=== PATIENT | female | born 1950 | race Caucasian/White ===

== ENCOUNTER 2023-05-30 14:51 | Oncology outpatient (recurring) (ONCR) | payer MEDICARE, MEDICAID, SELFPAY | END 2023-06-20 23:59 | disposition home or self-care (01) | PROVIDERS: PCP Nurse Practitioner Family; Visit Provider Internal Medicine Medical Oncology | DX: C20 Malignant neoplasm of rectum (principal); Z79.899 Other long term (current) drug therapy | CPT/HCPCS: 99205 ==

== ENCOUNTER → 2023-08-13 14:44 | Day surgery (SDC) | payer MEDICARE, MEDICAID, SELFPAY ==
--- NOTE | 2023-08-13 14:47 | XR_ITS ---
WS: [id number] Exam: XR chest 1V portable [id number] Date/Time of Exam: 08/13/2023 2:47 PM Reason For Exam: Post PICC insertion The lungs are clear and fully expanded. Normal cardiomediastinal silhouette. No pleural effusions. A left-sided PICC line ends in the lower one third of the SVC. Bony structures are intact. Mild scolios is at the thoracolumbar junction with RIGHT convexity. IMPRESSION: 1. No acute cardiopulmonary finding. 2. Left-sided PICC line ending in the lower one third of the SVC.
[2023-08-13 14:50] VITALS: BP 160/96; PULSE 92; RESP 18; TEMP 36.1; O2SAT 100
--- NOTE | 2023-08-13 15:30 | PC.NURSE ---
Double lumen PICC placed to left basilic vein. Pt referred to vascular access nurse for PICC line to start chemotherapy. Pt states she is right handed and would like line placed in left arm. Risks and benefits discussed and informed consent obtained from patient. Left arm assessed with left brachial vein measuring 3.4 mm, straight, and apparent best choice for placement. Using sterile technique and MST, left brachial vein accessed but patient complaining of sharp pain radiating down arm to thumb. States pain is significant. Needle removed. Second attempt made to left basilic vein. Using sterile technique and MST, left basilic vein accessed x 1 stick. Mid-arm circumference measured 10 cm from left AC 25 cm. Trimmed cath 43 cm with 1 cm external length noted. CXR shows tip in distal SVC, in good position for use per radiologist. Line secured with stat-lock. Insertion site covered with Biopatch and TSM. [facility] at 0730 for lab draw, followed by initiation of chemotherapy. Pt states her left arm still has residual sharp pain around the elbow area and down arm. Educated patient to take prescribed pain medication and her anxiety medication when she gets home. CTC nurse, Adela, notified of pain in arm and to notify vascular access nurse tomorrow if pain persists.
== END ==
PROVIDERS: PCP Nurse Practitioner Family; Visit Provider Internal Medicine Medical Oncology
DX: C20 Malignant neoplasm of rectum (principal)
CPT/HCPCS: 36573; 71045

== ENCOUNTER 2023-08-16 14:30 | Oncology outpatient (recurring) (ONCR) | payer MEDICARE, MEDICAID, SELFPAY ==
--- NOTE | 2023-08-13 14:08 | N.ONRAD NP_ITS ---
Radiation Oncology New Patient Visit Patient: Madiha Echeverira MR#: [id number] : 1950> Age: 72> Sex: Female> Dictated by: Dr. Kanika Mensah Date of Service: 08/13/2023 Referring Physician(s) : Dr. Mk Leary Diagnosis: C20 - malignant neoplasm of rectum, Diagnosed 05/07/2023 (active). Radiotherapy to date: Summary > No prior radiation therapy. Chief Complaint / History of Present Illness: Patient is a 72-year-old lady who began to have rectal bleeding in the spring 2022. She was initially told this was most likely from hemorrhoids. She was given different options for creams for hemorrhoids. She began to also have increased frequency of stools getting up to 30 a day at 1 point. Said that point she was given Imodium to slow her stools down. By March her workup had begun and she was found on a CT scan to have thickening of the rectal wall and perirectal lymph nodes. She underwent colonoscopy in April 2023 and was found to have multiple polyps all of which were removed. She also had a mass in the rectum which was circumferential that extended 6 cm from the peritoneal reflection downward. Biopsy showed this was a grade 2 adenocarcinoma of the rectum. She has in the interim lost nearly 35 pounds. She continues to have bleeding and throbbing pain. She passes liquid or mucus. She on occasion will have a strand of stool. She is seen today in consultation to discuss treatment plan. She has had an MRI which confirmed the extension of the rectal lesion as well as the presence of adenopathy. Current Medications: acetaminophen 500 mg PO Q6H PRN amlodipine 5 mg PO DAILY cholecalciferol (vitamin D3) 25 mcg PO DAILY cyanocobalamin (vitamin B-12) 1,000 mcg PO DAILY levothyroxine 50 mcg PO DAILY Allergies: Medical History: Fibromyalgia Hypothyroidism Hypertension. Surgical History: H/O colonoscopy with polypectomy (05/07/23) H/O section Family History: Her father had lung cancer Father Lung cancer Mother Heart failure Social History: Smoking and tobacco/nicotine status: former use of tobacco/nicotine Quit status (tobacco/nicotine): has quit using Year quit tobacco: 2015 Former quit date comment: She previously smoked 1/2 pack of cigarettes daily. Alcohol intake: never Current Complaints / Review of Systems: . Frequent stools, blood in her stools Vital Signs: Performed on 08/13/2023 1:01 PM BMI - 11.247 kg/m2 (low), Height - 92 in, Weight - 135.4 lbs, Temperature - 97 f, Pulse - 95 /min, Respiration - 18 /min, O2 Sat - 99 %, Pain - 8, Fatigue - 0 and BP - 177/ 79 mm(hg)(high/). Physical Exam: General: Patient is sitting comfortably in her chair. She is accompanied today by her and her daughter. HEENT: Normocephalic atraumatic. Pupils are equal, sclera clear, extraocular muscles intact. Oral cavity was clear without lesions or ulcerations. Neck is supple without palpable cervical or supraclavicular adenopathy Cardiovascular: Regular rate and rhythm Pulmonary: Lungs were clear to auscultation. Respiratory rate is regular nonlabored Abdomen: Soft and nontender without hepatomegaly. No palpable areas of tenderness were noted. Extremities: Without clubbing cyanosis or edema Neurological: Alert and orient x 3. Gait and speech within normal limits Psych: Affect normal for current situation. Patient seems to be somewhat forgetful as she does not recall some of the information that she has been told. Skin: Warm and dry. Her skin is somewhat pale Performance Status: KPS 90 Pathology: Grade 2 adenocarcinoma Imaging: See HPI Impression: Stage III adenocarcinoma of the rectum Plan: I reviewed the sequence of events. We discussed her bowel history. We reviewed the imaging she had done and the results. We discussed the extent of the cancer and its length. The plan at this point is to proceed with neoadjuvant chemotherapy followed by combined modality therapy. We talked about the radiation being 5 weeks, daily along with chemotherapy. She understands she will start her chemotherapy first and once the first part of her chemotherapy is completed she will be sent back to start the combined modality therapy. At this point she was seen by the medical oncologist today and she will have a port placed and start her treatments as soon as possible. I reviewed with her the symptoms to watch for as I am concerned that she may become obstructed. She and her family verbalized understanding of this. Signed by: 08/13/2023 2:06:25 PM <<[id number] on File>> Time spent with patient:60 CPT Code: CPT Code:
[2023-08-14 07:58] LABS: Basophils # 0.1 10^3/uL (0.0-0.1); Basophils % 0.7 %; Eosinophils # 0.1 10^3/uL (0.0-0.8); Eosinophils % 1.7 %; Hematocrit 29.8 % (36-47); Lymphocytes # 1.7 10^3/uL (0.8-4.8); Lymphocytes % 22.7 %; Mean Corpuscular HGB Conc 28.2 g/dL (30-55); Mean Corpuscular Hemoglobin 20.1 pg (27-33); Mean Corpuscular Volume 71.5 fl (85-98); Mean Platelet Volume 9.8 fL (7.4-10.4); Monocytes # 0.6 10^3/uL (0.2-0.9); Monocytes % 8.7 %; Neutrophils # 4.79 10^3/uL (1.8-7.7); Neutrophils % 65.9 %; Nucleated Red Blood Cells % 0 %; Platelet Count 455 10^3/cmm (157-399); Red Blood Count 4.17 10^6/uL (3.85-5.65); Red Cell Distribution Width 18.4 % (12.1-15.1); White Blood Count 7.26 10^3/uL (3.29-11.43)
[2023-08-14 08:15] LABS: Alanine Aminotransferase 7 U/L (0-33); Albumin Level 4.2 g/dL (3.5-5.2); Alkaline Phosphatase 115 U/L (35-105); Blood Urea Nitrogen 16 mg/dL (8-23); Calcium 9.8 mg/dL (8.5-10.5); Carbon Dioxide 22 mmol/L (22-29); Chloride 103 mmol/L (98-107); Creatinine Clr Calc Pharmacy 54.7434; Globulin 3.8 g/dL (1.3-4.6); Glucose 112 mg/dL (65-115); Osmolality Calculated 286 mOsm/kg (285-295); Sodium 137 mmol/L (136-145); Total Bilirubin 0.5 mg/dL (0.15-1.2)
[2023-08-14 08:19] LABS: Anion Gap 16.7 (5-19); Potassium 4.7 mmol/L (3.5-5.1)
[2023-08-14 08:25] LABS: Aspartate Amino Transferase 5 U/L (0-32)
[2023-08-14 09:18] LABS: Ferritin 11 ng/mL (15-150); Iron 23 ug/dL (37-145); Percent Saturation 5.6 % (20-50); Total Iron Binding Capacity 410 mcg/dl; Unsaturated Iron Binding 387 ug/dL (112-347)
[2023-08-14] MEDS: dextrose 5% 250 ML 75 ML IV (09:18)
[2023-08-14] MEDS: palonosetron 0.25 mg/5 mL SDV IVP (09:18)
[2023-08-14] MEDS: oxaliplatin 100 MG, oxaliplatin 40 MG in dextrose 5% 250 ML 139 MG IV (10:07)
[2023-08-14] MEDS: leucovorin 660 MG in dextrose 5% 250 ML 62.5 MG IV (10:08)
[2023-08-14] MEDS: ELASTOMERIC PUMP PUMP IV (13:55)
[2023-08-14] MEDS: FLUOROURACIL IV (13:55)
[2023-08-14] MEDS: SODIUM CHLORIDE IV (13:55)
[2023-08-14 14:04] VITALS: BP 154/70; PULSE 90; RESP 16; TEMP 36.6; O2SAT 99
[2023-08-14 14:32] VITALS: BMI 24.7
[2023-08-16 15:00] VITALS: BP 179/64; PULSE 88; RESP 16; TEMP 36.6; O2SAT 92
== END 2023-08-19 23:59 | disposition home or self-care (01) ==
PROVIDERS: Nurse Practitioner Family; PCP Nurse Practitioner Family; Visit Provider Internal Medicine Medical Oncology
DX: Z45.1 Encounter for adjustment and management of infusion pump (principal); Z53.9 Procedure and treatment not carried out, unspecified reason
CPT/HCPCS: 36573; 36592; 71045; 80053; 82728; 83540; 83550; 85025; 96365; 96367; 96368; 96374; 96375; 96413; 96415; 96416; 96523; 99205; 99214; 99215; J0640; J1100; J2469; J7060; J9190; J9263

== ENCOUNTER → 2023-08-31 11:16 | Outpatient (BNVA) | payer MEDICARE, MEDICAID, SELFPAY | PROVIDERS: PCP Nurse Practitioner Family; Referring Provider Internal Medicine Medical Oncology; Visit Provider Surgery | DX: C20 Malignant neoplasm of rectum (principal) | CPT/HCPCS: 99204 ==

== ENCOUNTER 2023-09-04 09:42 | Day surgery (SDC) | payer MEDICARE, MEDICAID, SELFPAY ==
[2023-09-04] VITALS (9 sets, daily range): BP systolic 138–171; BP diastolic 68–83; PULSE 83–90; RESP 12–22; TEMP 36.3–37.1; O2SAT 97–100; BMI 23.8
--- NOTE | 2023-09-04 09:50 | SC_ITS ---
WS: [id number] INTRAOPERATIVE TECHNIQUE: 2 Spot fluoroscopic images for intraoperative purposes. FLUOROSCOPY TIME: 2.8 seconds CLINICAL INFORMATION: Mediport placement COMPARISON: None. FINDINGS: LEFT Port-A-Cath with tip in the mid SVC in good position. LEFT PICC line with tip in the distal SVC in good position. No visualized pneumothorax. IMPRESSION: Images obtained for intraoperative purposes.
--- NOTE | 2023-09-04 09:50 | XR_ITS ---
WS: [id number] Exam: XR chest 1V portable [id number] Date/Time of Exam: 09/04/2023 12:50 PM Reason For Exam: Postop Mediport placement Comparison 08/13/2023. Lungs are clear and fully inflated. Normal cardiomediastinal silhouette. A LEFT subclavian Mediport h as been placed and ends in the lower one third of the SVC. Bony structures are intact. An indwelling left-sided PICC line also ends in the lower one third of the SVC. IMPRESSION: 1. No acute cardiopulmonary finding. 2. Left-sided Mediport ends in the lower one third of the SVC as does a pre-existing left-sided PICC line.
--- NOTE | 2023-09-04 10:15 | ECG_ITS ---
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 Measurements Intervals [place] Rate: 87 P: 64 VT: 112 QRS: 50 QRSD: 73 T: 60 QT: 337 QTc: 406 Interpretive Statements SINUS RHYTHM WITH SHORT VT INTERVAL No previous ECG available for comparison Electronically Signed On 09-04-2023 12:29:45 CDT by Canelo Reid M.D. [id number]
[2023-09-04] MEDS: sodium chloride 0.9% 1,000 ML 30 ML IV (10:20)
--- NOTE | 2023-09-04 10:50 | ANES.PREANE2 ---
Pre-Anesthetic Assessment Height/Weight: Height 1.57 m Weight 58.967 kg Temp Pulse Resp BP Pulse Ox O2 Del Method 98.8 F 84 16 168/83 99 Room Air 09/04/23 09:58 09/04/23 09:58 09/04/23 09:58 09/04/23 09:58 09/04/23 09:58 09/04/23 10:15 Operation Date: 09/04/23 11:20 Proposed Procedures p Portacath Placement 35935, C20(Not Applicable) - Lenard Vargas DO Last intake: Intake Last Liquid Date 09/03/23 Last Liquid Time 17:00 Last Solid Date 09/03/23 Last Solid Time 17:00 Social No alcohol and No tobacco Exam alert, oriented x 3, clear to auscultation bilaterally and regular rate & rhythm Airway Submandibular: within normal limits Cervical ROM: within normal limits Mallampati: Class II Anesthetic Plan ASA status: 2 Anesthesia: MAC Medications/Allergies Home Medications Medication Instructions Recorded Confirmed Last Taken Type acetaminophen 500 mg capsule 500 mg PO Q6H PRN Pain 05/30/23 09/04/23 1 Week Ago History ~08/28/23 amlodipine 5 mg tablet 5 mg PO DAILY 05/30/23 09/03/23 09/03/23 History levothyroxine 50 mcg capsule 50 mcg PO DAILY 05/30/23 09/03/23 09/03/23 History alprazolam 0.25 mg tablet 0.125 mg PO TID PRN Anxiety 08/13/23 09/03/23 08/30/23 History hydrocodone 5 mg-acetaminophen 325 1 tab PO Q4H PRN pain 30 days #180 08/13/23 09/03/23 09/03/23 Rx mg tablet tabs ondansetron HCl 4 mg tablet 4 mg PO Q6H PRN nausea and 08/14/23 09/04/23 09/03/23 Rx vomiting #30 tabs prochlorperazine maleate 10 mg 10 mg PO Q6H PRN nausea and 08/14/23 09/04/23 09/03/23 Rx tablet vomiting #30 tabs Allergies Allergy/AdvReac Type Severity Reaction Status Date / Time No Known Allergies Allergy Verified 08/28/23 10:26 Current Medications Generic Name Dose Route Start Last Admin Trade Name Freq PRN Reason Stop Dose Admin Sodium Chloride 1,000 mls @ 30 mls/hr 09/04/23 10:00 09/04/23 10:20 Sodium Chloride 0.9% IV 09/05/23 09:59 30 mls/hr .Q24H GAYLE Administration PFSH Anesthesia Medical History (Updated 08/31/23 @ 11:58 by MAGI Gant) Fibromyalgia Hypothyroidism Hypertension Surgical History H/O colonoscopy with polypectomy (05/07/23) H/O section Family History Father Lung cancer Mother Heart failure Social History Smoking and tobacco/nicotine status: former use of tobacco/nicotine Quit status (tobacco/nicotine): has quit using Year quit tobacco: 2015 Former quit date comment: She previously smoked 1/2 pack of cigarettes daily. Alcohol intake: never Data Anesthesia Cardiac Studies: No Data to Display
--- NOTE | 2023-09-04 11:02 | W.PM.OPSUD ---
Surgery/Procedure H&P Update DATE OF PROCEDURE: September 04, 2023 DATE H&P PERFORMED: 08/31/23 H&P UPDATE INFORMATION: I have reviewed H&P completed within last 30 days, I have examined patient prior to procedure and No changes to prior documentation PLANNED PROCEDURE: Operation Date: 09/04/23 11:20 Proposed Procedures p Portacath Placement 77494, C20(Not Applicable) - Lenard Vargas, DO
[2023-09-04] MEDS: ceFAZolin 2,000 MG in sodium chloride 0.9% (plus) 50 ML 100 MG IV (11:53)
[2023-09-04] MEDS: lidocaine-epi 2% PF 1:200,000 20 mL SDV XX (12:19)
[2023-09-04] MEDS: heparin, porcine 1,000 unit/mL INJ 10 mL 10000 UNIT IRRIGATION (12:25)
--- NOTE | 2023-09-04 12:39 | P.OP_ITS ---
Operative Report Date of procedure: September 04, 2023 Pre-op diagnosis: Rectal cancer Post-op diagnosis: same Procedure done: Mediport insertion Intraoperative interpretation of fluoroscopy Implants: PowerPort Specimens removed/disposition: None Surgeon: Lenard Vargas DO Anesthesia: MAC and Local Estimated blood loss (mL): 5 Complications: None apparent Brief History: This is a very pleasant 72-year-old female rectal cancer who was referred to my office for Mediport placement. The risk and benefits were explained and documented. Procedure: They put another order I will do right now things the patient was taken to the operating room and placed supine on the operating room table. All bony prominences were padded. She was given IV sedation and monitored throughout the case by the anesthesia personnel. SCDs were placed and turned on. The arms were tucked to the side. Patient received Ancef 2 g preoperatively IV. The bilateral chest wall was prepped and draped in usual sterile fashion using chlorhexidine base prep. Sterile drapes were applied. We did procedure pause prior to beginning. An 18 gauge needle was placed in the left subclavian vein. Dark, nonpulsatile blood was aspirated. A guidewire was placed through the needle centrally toward the atrial/vena caval junction. Fluoroscopy visualized good placement. The needle was removed and the guidewire was clipped to the drape with a hemostat. Further local anesthetic was infiltrated in the soft tissues of the left chest wall and a #15 blade was used to make a horizontal skin incision. A subcutaneous Mediport pocket was created using Bovie cautery, dissecting down through the skin and subcutaneous tissues. Meticulous hemostasis was achieved. The Mediport was sutured in position using 3-0 vicryl suture x2 stitches. A #15 blade was used to make a small skin karlee around the guidewire insertion area. The Mediport tubing was tunneled through the subcutaneous tissues up to the needle insertion location. A dilator with a peel-away sheath was placed over the guidewire and placed centrally. After measuring the Mediport tubing was cut to length so that the tip would end at the atrial/vena caval junction. The inner cannula and the guidewire were removed, leaving the dilator sheath in place. The Mediport was flushed. The tip of the catheter was inserted through the peel-away sheath and the peel-away sheath removed in the standard fashion. The Mediport was accessed with a straight Verduzco needle and dark, nonpulsatile blood was aspirated and flushed using heparinized saline to hep-lock the Mediport. Final fluoroscopy visualization showed no kink in the catheter and the tip of th e Mediport tubing near the atrial/vena caval junction. There was no obvious pneumothorax Both skin incisions were thoroughly irrigated and suctioned dry. Meticulous hemostasis noted. The dermis was approximated with 3-0 Vicryl in an interrupted fashion. Skin was closed with Dermabond. Patient was awakened from anesthesia and transferred via her cart to the recovery room in stable condition. All needle, sponge, and instrument counts were correct per the operating personnel x2 counts.
[2023-09-04] MEDS: fentaNYL 50 mcg/mL INJ 2mL IVP (13:22)
--- NOTE | 2023-09-04 14:13 | PC.NURSE ---
KENAN CARD AND INFORMATION GIVE TO PTZaid HAYES PICC STILL IN PLACE UPON DISCHARGE.
--- NOTE | 2023-09-04 15:07 | ANE.PACU2 ---
Inpatient post-anesthesia follow up: Vital signs: Temperature 97.7 F Pulse Rate 84 Respiratory Rate 18 Blood Pressure 161/77 Pulse Oximetry 97 Oxygen Delivery Me thod Room Air Oxygen Flow Rate Fraction of Inspir ed Oxygen Hydration adequate: Yes Nausea and vomiting: No Mental status: Baseline Additional Comments: no apparent anesthetic complications noted
== END 2023-09-04 14:07 | disposition home or self-care (01) ==
PROVIDERS: PCP Nurse Practitioner Family; Visit Provider Surgery
PROC: (CPT 36561; principal; 2023-09-04 11:10)
DX: C20 Malignant neoplasm of rectum (principal); M79.7 Fibromyalgia; E03.9 Hypothyroidism, unspecified; I10 Essential (primary) hypertension; Z87.891 Personal history of nicotine dependence
CPT/HCPCS: 36561; 71045; 77001; 93005; C1788; J0690; J1644; J2704; J3010; J7030

== ENCOUNTER 2023-09-15 13:25 | Emergency (ER) | payer MEDICARE, MEDICAID, SELFPAY ==
[2023-09-15 13:30] VITALS: BP 146/76; PULSE 56; RESP 20; TEMP 36.4; O2SAT 99; BMI 23.6
--- NOTE | 2023-09-15 14:03 | XRR_ITS ---
PROCEDURE INFORMATION: Exam: XR Abdomen Exam date and time: 09/15/2023 3:16 PM Age: 72 years old Clinical indication: Patient HX: Abdominal pain; Constipation; Recent colorectal CA diagnosis TECHNIQUE: Imaging protocol: Radiologic exam of the abdomen. Views: 2 Views. Upright and supine views. COMPARISON: CR XR chest 1V portable [id number] 09/04/2023 12:48 PM FINDINGS: Tubes, catheters and devices: Tip of the central venous catheter terminates over the superior vena cava. Gastrointestinal tract: High density is seen in the pelvis overlying the sacrum possibly within a bowel loop. Colonic constipation is present. Intraperitoneal space: Normal. No free air. Vasculature: There is calcified plaque in the aortic knob. Bones/joints: There are degenerative changes in the thoracic spine and across the acromioclavicular joints. Mild lateral curvature of the lumbar spine with the convexity to the left. XR/XR acute abdomen series [id number] IMPRESSION: 1. Colonic constipation is present. 2. High density is seen in the pelvis overlying the sacrum possibly within a bowel loop.
[2023-09-15] MEDS: sodium chloride 0.9% 1,000 ML 999 ML IV (14:46)
[2023-09-15] MEDS: ondansetron 2 mg/ML SDV 2 mL 4 MG IVP (14:54)
--- NOTE | 2023-09-15 14:55 | W.ED.ABDPA2 ---
HPI - Abdominal Pain General: Chief Complaint: Abdominal Pain Stated Complaint: cancer pt, cant eat or drink anything, N/V Time Seen by Provider: 09/15/23 13:57 History of Present Illness: 72-year-old female who is currently receiving chemotherapy for rectal cancer who presents the emergency room with lower abdominal pain nausea and weakness. Was completed 2 days ago. She is having some lower abdominal pain. Trouble with bowel movements. No chest pain. No altered mental status. No focal motor deficits. Review of Systems Narrative: Constitutional symptoms: Negative except as documented in HPI. Skin symptoms: Negative except as documented in HPI. Eye symptoms: Negative except as documented in HPI. ENMT symptoms: Negative except as documented in HPI. Respiratory symptoms: Negative except as documented in HPI. Cardiovascular symptoms: Negative except as documented in HPI. Gastrointestinal symptoms: Negative except as documented in HPI. Genitourinary symptoms: Negative except as documented in HPI. Musculoskeletal symptoms: Negative except as documented in HPI. Neurologic symptoms: Negative except as documented in HPI. Psychiatric symptoms: Negative except as documented in HPI. Endocrine symptoms: Negative except as documented in HPI. FORMERLY [facility] ED PFSH: Medical History Fibromyalgia Hypertension Hypothyroidism Surgical History H/O section H/O colonoscopy with polypectomy (05/07/23) Family History Father Lung cancer Mother Heart failure Social History Smoking and tobacco/nicotine status: former use of tobacco/nicotine Quit status (tobacco/nicotine): has quit using Year quit tobacco: 2016 Former quit date comment: She previously smoked 1/2 pack of cigarettes daily. Alcohol intake: never Physical Exam Narrative: EXAM NARRATIVE: General: Alert, no acute distress. Skin: Warm, dry. Head: Normocephalic, atraumatic. Neck: Supple, trachea midline. Eye: Extraocular movements are intact. Ears, nose, mouth and throat: Dry oral mucosa Cardiovascular: Regular, Normal peripheral perfusion. Respiratory: Lungs are clear to auscultation, respirations are non-labored, breath sounds are equal, Symmetrical chest wall expansion. Gastrointestinal: Soft, lower abdominal tenderness, Non distended, Normal bowel sounds. Musculoskeletal: Normal ROM, no deformity. Neurological: Alert and oriented, No focal neurological deficit observed. Psychiatric: Cooperative, appropriate mood & affect. Course Vital Signs: Vital signs: Vital Signs Temperature 97.6 F 09/15/23 13:30 Pulse Rate 91 09/15/23 16:11 Respiratory Rate 17 09/15/23 14:58 Blood Pressure 128/92 09/15/23 16:11 Pulse Oximetry 90 09/15/23 16:11 Oxygen Delivery Me thod Room Air 09/15/23 13:30 MDM - Abdominal Pain Medical Decision Making Medical decision making: Differential diagnosis including but not limited to and based on the above HPI, review of systems and physical exam: Would have concern for neutropenia, infection, bowel obstruction, constipation. Orders placed to evaluate differential diagnosis based on the above differential, HPI and physical exam Lab Review: Laboratory results were reviewed and interpreted by myself the emergency room physician. White count is 3.2. She is not neutropenic today. Hemoglobin is 11.3. BUN and creatinine are 13 and 0.6. Acute abdominal series: chest x-ray: No acute process. No obvious infiltrates. No pneumothorax. No cardiomegaly. This was reviewed and interpreted by myself the emergency room physician Abdomen x-ray: Patient appears quite constipated. No evidence of free air or obstruction. This was reviewed and interpreted by myself the emergency room physician. I reviewed the patient's medical record. Reexamination: Patient appears somewhat less in pain. Still with some pain. No altered mental status. No focal motor deficits. No increased work of breathing. Lab Data 09/15/23 14:58 09/15/23 14:58 Labs/Radiology: Radiology Impressions Chest/Abdomen X-ray 09/15/23 14:03 IMPRESSION: 1. Colonic constipation is present. 2. High density is seen in the pelvis overlying the sacrum possibly within a bowel loop. Laboratory Results WBC 3.23 10^3/uL (3.29-11.43) L 09/15/23 14:58 RBC 4.58 10^6/uL (3.85-5.65) 09/15/23 14:58 Hgb 11.30 g/dL (11.27-16.99) 09/15/23 14:58 Hct 37.2 % (36-47) 09/15/23 14:58 MCV 81.2 fl (85-98) L 09/15/23 14:58 MCH 24.7 pg (27-33) L 09/15/23 14:58 MCHC 30.4 g/dL (30-55) 09/15/23 14:58 RDW 11.0 % (12.1-15.1) L 09/15/23 14:58 Plt Count 211 10^3/cmm (157-399) 09/15/23 14:58 MPV 9.9 fL (7.4-10.4) 09/15/23 14:58 Neut % (Auto) 90.7 % 09/15/23 14:58 Lymph % (Auto) 6.8 % 09/15/23 14:58 [place] % (Auto) 1.9 % 09/15/23 14:58 Eos % (Auto) 0.0 % 09/15/23 14:58 Baso % (Auto) 0.3 % 09/15/23 14:58 Neut # (Auto) 2.93 10^3/uL (1.8-7.7) 09/15/23 14:58 Lymph # (Auto) 0.2 10^3/uL (0.8-4.8) L 09/15/23 14:58 [place] # (Auto) 0.1 10^3/uL (0.2-0.9) L 09/15/23 14:58 Eos # (Auto) 0.0 10^3/uL (0.0-0.8) 09/15/23 14:58 Baso # (Auto) 0.0 10^3/uL (0.0-0.1) 09/15/23 14:58 Nucleated RBC % (auto) 0 % 09/15/23 14:58 Nucleated RBCs # 0.0 /100WBC 09/15/23 14:58 Sodium 139 mmol/L (136-145) 09/15/23 14:58 Potassium 4.0 mmol/L (3.5-5.1) 09/15/23 14:58 Chloride 106 mmol/L (98-107) 09/15/23 14:58 Carbon Dioxide 23 mmol/L (22-29) 09/15/23 14:58 Anion Gap 14.0 (5-19) 09/15/23 14:58 BUN 13 mg/dL (8-23) 09/15/23 14:58 Creatinine 0.6 mg/dL (0.5-0.9) 09/15/23 14:58 GFR Calculation Not Reportable 09/15/23 14:58 Glucose 137 mg/dL (65-115) H 09/15/23 14:58 Calculated Osmolality 290 mOsm/kg (285-295) 09/15/23 14:58 Lactic Acid 1.7 mmol/L (0.5-2.2) 09/15/23 14:58 Calcium 9.2 mg/dL (8.5-10.5) 09/15/23 14:58 Total Bilirubin 0.5 mg/dL (0.15-1.2) 09/15/23 14:58 AST 46 U/L (0-32) H 09/15/23 14:58 ALT 43 U/L (0-33) H 09/15/23 14:58 Alkaline Phosphatase 95 U/L (35-105) 09/15/23 14:58 C-Reactive Protein 7.2 mg/L (0.0-4.9) H 09/15/23 14:58 Total Protein 7.0 g/dL (6.6-8.7) 09/15/23 14:58 Albumin 3.7 g/dL (3.5-5.2) 09/15/23 14:58 Globulin 3.3 g/dL (1.3-4.6) 09/15/23 14:58 Urine Color Yellow (Yellow) 09/15/23 15:53 Urine Appearance Clear (CLEAR) 09/15/23 15:53 Urine pH 6.5 (5-7) 09/15/23 15:53 Ur Specific [place] 1.015 (1.005-1.030) 09/15/23 15:53 Urine Protein Neg (Negative) 09/15/23 15:53 Urine Glucose (UA) Norm (Normal) 09/15/23 15:53 Urine Ketones 1+ (Negative) H 09/15/23 15:53 Urine Blood Neg (Negative) 09/15/23 15:53 Urine Nitrate Negative (Negative) 09/15/23 15:53 Urine Bilirubin Neg (Negative) 09/15/23 15:53 Urine Urobilinogen Norm mg/dL (Negative) 09/15/23 15:53 Ur Leukocyte Esterase Negative (Negative) 09/15/23 15:53 Urine RBC None /hpf (0-2) 09/15/23 15:53 Urine WBC Rare /hpf (0-5) 09/15/23 15:53 Ur Squamous Epith Cells None /hpf (0-5) 09/15/23 15:53 Amorphous Sediment Not Reportable 09/15/23 15:53 Urine Bacteria Trace /hpf (NONE) 09/15/23 15:53 All radiology interpretation(s) finalized by discharge Other Data Assessment and plan: Constipation Dehydration Abdominal pain -IV fluids, IV morphine, IV Zofran and IV Ativan - Discharged home - Discussed findings and plan with patient. Answered any questions. - All laboratory values were reviewed and interpreted personally by myself, the ER physician - All imaging was reviewed and interpreted personally by myself, the ER physician. - Evaluation and treatment of this problem were appropriate in the emergency setting Discharge Plan Discharge Patient Disposition: Home Clinical Impression: Constipation, Dehydration, Chemotherapy-induced nausea Condition: Stable Prescriptions: New magnesium citrate Solution 296 ml PO ONCE Qty: 296 0RF Miralax 17 gram/dose powder 17 g PO DAILY Qty: 510 0RF Rx Instructions: Take 1-2 scoops daily for the next 3 months to keep stools soft glycerin (adult) Suppository 1 supp MI DAILY PRN (Reason: constipation) Qty: 12 0RF No Action levothyroxine 50 mcg capsule 50 mcg PO DAILY amlodipine 5 mg tablet 5 mg PO QPM acetaminophen 500 mg capsule 500 mg PO Q6H PRN (Reason: Pain) alprazolam 0.25 mg tablet 0.125 mg PO TID PRN (Reason: Anxiety) hydrocodone-acetaminophen 5-325 mg tablet 1 tab PO Q4H PRN (Reason: pain) 30 Days Qty: 180 0RF ondansetron HCl 4 mg tablet 4 mg PO Q6H PRN (Reason: nausea and vomiting) Qty: 30 1RF prochlorperazine maleate 10 mg tablet 10 mg PO Q6H PRN (Reason: nausea and vomiting) Qty: 30 2RF ondansetron 8 mg tablet,disintegrating 8 mg PO Q8H PRN (Reason: nausea and vomiting) Qty: 60 3RF Rx Instructions: 1 tablet under tongue up to every 8 hours prn nausea famciclovir 500 mg tablet 500 mg PO Q8H Qty: 30 6RF magic mouthwash 15 ml PO 6XD PRN (Reason: sore mouth) Qty: 16 6RF Rx Instructions: 5 oz Maalox,5 OZ liquid benadryl, 5 oz 2% viscose lidocaine and 1 oz Nystatin 100,000 squish and spit or swallow up to 6 times daily prn sore mouth. May increase dose to 30 ml if no improvement in 24 hours. clotrimazole 10 mg charisma 10 mg mucous membrane TID Qty: 30 6RF lidocaine HCl [Lidocaine Viscous] 2 % solution 1 applic mucous membrane TID Qty: 45 6RF Rx Instructions: mix a directed for sore mouth Discharge Orders: Discharge ED (Routine); Ordered 09/15/23 Ordered By: Anita Edmondson Referrals: Laura Keller [Primary Care Provider] - (You have been screened and evaluated and felt safe for discharge. Health conditions do change or evolve sometimes and as such it is important that you follow up with your Primary Doctor to be re checked, 3-5 days is a general good time frame for follow up. You are always welcome to return to the ED for re assessment if your symptoms are worsening or you have new concerns) Discharge Diet: Advance as tolerated Discharge Activity: Increase activity as tolerated Patient Instructions: Constipation (ED) Coding Level of Care Code ED [employer] for Juan David Ordoñez
[2023-09-15] MEDS: LORazepam 2 mg/mL INJ 10 mL MDV 1 MG IV (14:56)
[2023-09-15 14:58] VITALS: RESP 17; O2SAT 94
[2023-09-15] MEDS: morphine 4 mg/mL SDV 1 mL IVP (14:58)
[2023-09-15 15:18] LABS: Basophils % 0.3 %; Hematocrit 37.2 % (36-47); Lymphocytes # 0.2 10^3/uL (0.8-4.8); Lymphocytes % 6.8 %; Mean Corpuscular HGB Conc 30.4 g/dL (30-55); Mean Corpuscular Hemoglobin 24.7 pg (27-33); Mean Corpuscular Volume 81.2 fl (85-98); Mean Platelet Volume 9.9 fL (7.4-10.4); Monocytes # 0.1 10^3/uL (0.2-0.9); Monocytes % 1.9 %; Neutrophils # 2.93 10^3/uL (1.8-7.7); Neutrophils % 90.7 %; Nucleated Red Blood Cells % 0 %; Platelet Count 211 10^3/cmm (157-399); Red Blood Count 4.58 10^6/uL (3.85-5.65); White Blood Count 3.23 10^3/uL (3.29-11.43)
[2023-09-15 15:38] LABS: Lactic Sepsis W/Reflex 1.7 mmol/L (0.5-2.2)
[2023-09-15 15:39] LABS: Alanine Aminotransferase 43 U/L (0-33); Albumin Level 3.7 g/dL (3.5-5.2); Alkaline Phosphatase 95 U/L (35-105); Aspartate Amino Transferase 46 U/L (0-32); Blood Urea Nitrogen 13 mg/dL (8-23); C Reactive Protein 7.2 mg/L (0.0-4.9); Calcium 9.2 mg/dL (8.5-10.5); Carbon Dioxide 23 mmol/L (22-29); Chloride 106 mmol/L (98-107); Creatinine Clr Calc Pharmacy 53.6508; Globulin 3.3 g/dL (1.3-4.6); Glucose 137 mg/dL (65-115); Osmolality Calculated 290 mOsm/kg (285-295); Sodium 139 mmol/L (136-145); Total Bilirubin 0.5 mg/dL (0.15-1.2)
[2023-09-15 16:11] VITALS: BP 128/92; PULSE 91; O2SAT 90
[2023-09-15 16:19] LABS: Bacteria Urine TRACE /hpf; Bilirubin Urine Neg (Negative); Blood Urine Neg (Negative); Glucose Urine UA Norm (Normal); Ketones Urine 1+ (Negative); Leukocyte Esterase Urine Negative (Negative); Nitrate Urine Negative (Negative); Protein Urine Neg (Negative); Specific Gravity, Urine 1.015 (1.005-1.030); Urine Appearance Clear (CLEAR); Urine Color Yellow (Yellow); Urobilinogen Urine Norm (Negative); WBC Urine RARE /hpf (0-5); pH Urine 6.5 (5-7)
[2023-09-15 16:20] LABS: Add Urine Culture? No
[2023-09-15 17:07] VITALS: BP 128/92; PULSE 91; O2SAT 90
== END 2023-09-15 17:22 | disposition home or self-care (01) ==
PROVIDERS: Emergency Provider Emergency Medicine; PCP Nurse Practitioner Family
DX: K59.00 Constipation, unspecified (principal); E86.0 Dehydration; R11.0 Nausea; T45.1X5A Adverse effect of antineoplastic and immunosuppressive drugs, initial encounter; I10 Essential (primary) hypertension; Z87.891 Personal history of nicotine dependence
CPT/HCPCS: 74022; 80053; 81001; 83605; 85025; 86140; 87040; 96361; 96374; 96375; 99284; J2060; J2270; J2405; J7030

== ENCOUNTER 2023-09-17 14:30 | Oncology outpatient (recurring) (ONCR) | payer MEDICARE, MEDICAID, SELFPAY ==
[2023-08-21 10:02] LABS: Basophils % 0.5 %; Eosinophils # 0.2 10^3/uL (0.0-0.8); Eosinophils % 6.5 %; Hematocrit 26.3 % (36-47); Lymphocytes # 1.3 10^3/uL (0.8-4.8); Mean Corpuscular HGB Conc 28.9 g/dL (30-55); Mean Corpuscular Hemoglobin 20.2 pg (27-33); Mean Corpuscular Volume 69.9 fl (85-98); Mean Platelet Volume 9.6 fL (7.4-10.4); Monocytes # 0.2 10^3/uL (0.2-0.9); Neutrophils # 1.93 10^3/uL (1.8-7.7); Neutrophils % 52.5 %; Nucleated Red Blood Cells % 0 %; Platelet Count 320 10^3/cmm (157-399); Red Blood Count 3.76 10^6/uL (3.85-5.65); Red Cell Distribution Width 18.4 % (12.1-15.1); White Blood Count 3.68 10^3/uL (3.29-11.43)
[2023-08-23 10:29] VITALS: TEMP 36.8
[2023-08-23] MEDS: ferric carboxy (IVPB) 750 MG in sodium chloride 0.9% (100 ml) 100 ML 345 MG IV (10:40)
[2023-08-23] MEDS: sodium chloride 0.9% 250 ML 75 ML IV (10:40)
[2023-08-23 11:31] VITALS: BP 164/64; PULSE 80; RESP 16; TEMP 36.7; O2SAT 97
[2023-08-28 10:05] LABS: Basophils % 0.7 %; Eosinophils # 0.1 10^3/uL (0.0-0.8); Eosinophils % 3.4 %; Hematocrit 31.5 % (36-47); Lymphocytes # 1.4 10^3/uL (0.8-4.8); Lymphocytes % 32.8 %; Mean Corpuscular HGB Conc 27.9 g/dL (30-55); Mean Platelet Volume 9.8 fL (7.4-10.4); Monocytes # 0.4 10^3/uL (0.2-0.9); Monocytes % 9.4 %; Neutrophils # 2.22 10^3/uL (1.8-7.7); Neutrophils % 53.5 %; Nucleated Red Blood Cells % 0 %; Platelet Count 389 10^3/cmm (157-399); White Blood Count 4.15 10^3/uL (3.29-11.43)
[2023-08-28 10:16] LABS: Alanine Aminotransferase 6 U/L (0-33); Albumin Level 4.2 g/dL (3.5-5.2); Alkaline Phosphatase 108 U/L (35-105); Anion Gap 15.8 (5-19); Aspartate Amino Transferase 19 U/L (0-32); Blood Urea Nitrogen 7 mg/dL (8-23); Calcium 9.5 mg/dL (8.5-10.5); Carbon Dioxide 23 mmol/L (22-29); Chloride 104 mmol/L (98-107); Creatinine Clr Calc Pharmacy 48.3572; Globulin 3.6 g/dL (1.3-4.6); Glucose 106 mg/dL (65-115); Osmolality Calculated 284 mOsm/kg (285-295); Potassium 4.8 mmol/L (3.5-5.1); Sodium 138 mmol/L (136-145); Total Bilirubin 0.3 mg/dL (0.15-1.2); Total Protein 7.8 g/dL (6.6-8.7)
[2023-08-28] MEDS: dextrose 5% 250 ML 75 ML IV (11:57)
[2023-08-28] MEDS: palonosetron 0.25 mg/5 mL SDV IVP (12:05)
[2023-08-28] MEDS: leucovorin 640 MG in dextrose 5% 250 ML 62.5 MG IV (12:44)
[2023-08-28] MEDS: oxaliplatin 100 MG, oxaliplatin 36 MG in dextrose 5% 250 ML 138.599999999999994 MG IV (12:45)
[2023-08-28] MEDS: fluorouraciL 3,850 MG, elastomeric pump 1 PUMP in sodium chloride 0.9% (100 ml) 15 ML IV (15:59)
[2023-08-28 16:16] VITALS: BP 187/97; PULSE 87; RESP 18; TEMP 36.6; O2SAT 98
[2023-08-30 14:06] VITALS: BP 170/69; PULSE 86; RESP 16; TEMP 36; O2SAT 97
[2023-08-30] MEDS: ferric carboxy (IVPB) 750 MG in sodium chloride 0.9% (100 ml) 100 ML 345 MG IV (14:16)
[2023-08-30 14:48] VITALS: BP 172/69; PULSE 87; RESP 18; TEMP 35.9; O2SAT 97
--- NOTE | 2023-09-05 16:59 | PC.NURSE ---
Pulled pts picc line from left upper arm. 43cm catheter removed, tip in tact. Pt tolerated well.
[2023-09-11 08:38] LABS: Basophils % 0.5 %; Eosinophils # 0.1 10^3/uL (0.0-0.8); Hematocrit 35.6 % (36-47); Lymphocytes # 1.1 10^3/uL (0.8-4.8); Lymphocytes % 27.5 %; Mean Corpuscular HGB Conc 29.5 g/dL (30-55); Mean Corpuscular Hemoglobin 23.7 pg (27-33); Mean Corpuscular Volume 80.4 fl (85-98); Mean Platelet Volume 10.1 fL (7.4-10.4); Monocytes # 0.6 10^3/uL (0.2-0.9); Monocytes % 16.2 %; Nucleated Red Blood Cells % 0 %; Platelet Count 213 10^3/cmm (157-399); Red Blood Count 4.43 10^6/uL (3.85-5.65); Red Cell Distribution Width 32.5 % (12.1-15.1); White Blood Count 3.96 10^3/uL (3.29-11.43)
[2023-09-11 09:52] LABS: Alanine Aminotransferase 17 U/L (0-33); Albumin Level 3.9 g/dL (3.5-5.2); Alkaline Phosphatase 98 U/L (35-105); Aspartate Amino Transferase 27 U/L (0-32); Blood Urea Nitrogen 9 mg/dL (8-23); Calcium 9.3 mg/dL (8.5-10.5); Carbon Dioxide 24 mmol/L (22-29); Chloride 106 mmol/L (98-107); Creatinine Clr Calc Pharmacy 53.9013; Globulin 3.4 g/dL (1.3-4.6); Glucose 88 mg/dL (65-115); Osmolality Calculated 286 mOsm/kg (285-295); Sodium 139 mmol/L (136-145); Total Bilirubin 0.4 mg/dL (0.15-1.2); Total Protein 7.3 g/dL (6.6-8.7)
[2023-09-11] MEDS: dextrose 5% 250 ML 75 ML IV (10:36)
[2023-09-11] MEDS: palonosetron 0.25 mg/5 mL SDV IVP (10:37)
[2023-09-11] MEDS: leucovorin 640 MG in dextrose 5% 250 ML 62.5 MG IV (11:01)
[2023-09-11] MEDS: oxaliplatin 100 MG, oxaliplatin 36 MG in dextrose 5% 250 ML 138.599999999999994 MG IV (11:02)
[2023-09-11] MEDS: fluorouraciL 3,800 MG, elastomeric pump 1 PUMP in sodium chloride 0.9% (100 ml) 16 ML IV (13:19)
[2023-09-11 13:21] VITALS: BP 179/74; PULSE 77; RESP 16; O2SAT 98
[2023-09-13 13:21] VITALS: BP 170/74; PULSE 70; RESP 16; TEMP 36.6; O2SAT 98
[2023-09-17] MEDS: sodium chloride 0.9% 1,000 ML 999 ML IV (14:46)
[2023-09-17 14:49] VITALS: BP 144/79; PULSE 107; O2SAT 96
== END 2023-09-18 23:59 | disposition home or self-care (01) ==
PROVIDERS: Nurse Practitioner Family; PCP Nurse Practitioner Family; Visit Provider Internal Medicine Medical Oncology
DX: Z53.9 Procedure and treatment not carried out, unspecified reason (principal); C20 Malignant neoplasm of rectum
CPT/HCPCS: 36592; 71260; 74177; 80053; 85025; 96365; 96367; 96368; 96375; 96413; 96415; 96416; 96523; 99214; J0640; J1100; J1439; J1642; J2469; J7030; J7050; J7060; J9190; J9263; Q9967

== ENCOUNTER 2023-09-17 16:15 | Outpatient (CLI) | payer MEDICARE, MEDICAID, SELFPAY ==
--- NOTE | 2023-09-17 16:15 | CTR_ITS ---
PROCEDURE INFORMATION: Exam: CT Chest With Contrast; Diagnostic Exam date and time: 09/17/2023 4:19 PM Age: 72 years old Clinical indication: Localized; On breathing; Patient HX: Lower abdominal pain x 5 days, HX of colorectal cancer; Additional info: Abdominal pain, no pa required TECHNIQUE: Imaging protocol: Diagnostic computed tomography of the chest with contrast. Radiation optimization: All CT scans at this facility use at least one of these dose optimization techniques: automated exposure control; mA and/or kV adjustment per patient size (includes targeted exams where dose is matched to clinical indication); or iterative reconstruction. Contrast material: OMNIPAQUE 350; Contrast volume: 100 ml; Contrast route: INTRAVENOUS (IV); COMPARISON: CT chest w con* [id number] 06/22/2023 2:46 PM RADIATION DOSE METRICS: Total DLP (mGy-cm): 604.5 FINDINGS: Thyroid: Heterogeneous appearance of thyroid with question of right-sided enhancing nodule not significantly changed. Consider thyroid ultrasound for further evaluation is recommended on the previous report. Lungs: There is calcified granuloma posterior left upper lobe abutting the fissure. 5 mm subpleural pulmonary nodule posterior right lower lobe image number 30, other small subpleural nodules at the left lung base such as on images number 35 thirty-nine 40 and 41 not significantly changed. Small peripheral 2 mm sized left lower lobe nodule on image number 36 and posterior right lower lobe image number 38 are also unchanged. No suspicious nodules are identified. Follow-up as directed by the patient's oncologist. There is no acute pulmonary infiltrate. There is some mild subsegmental atelectasis or scarring in the lingula not significantly changed. Small emphysematous bleb is seen in the anterior left upper lobe image number 25 not significantly changed. Pleural spaces: Unremarkable. No pneumothorax. No pleural effusion. Heart: Unremarkable. No cardiomegaly. No pericardial effusion. Lymph nodes: There is no evidence of lymphadenopathy. Vasculature: There is atherosclerotic calcification of the aortic arch and descending thoracic aorta. There is no thoracic aortic aneurysm or dissection. Bones/joints: There is no evidence of acute fracture. There is no evidence of acute fracture. The thoracic spine demonstrates mild degenerative changes at multiple levels. Soft tissues: Unremarkable. COMMENTS: The presence of pulmonary emphysema on CT is an independent risk factor for lung cancer. In the absence of a history or active diagnosis of lung cancer, it is recommended that this patient with emphysema be evaluated for enrollment in a low dose CT lung cancer screening program. PROCEDURE INFORMATION: Exam: CT Abdomen And Pelvis With Contrast Exam date and time: 09/17/2023 4:19 PM Age: 72 years old Clinical indication: Localized; On breathing; Patient HX: Lower abdominal pain x 5 days, HX of colorectal cancer; Additional info: Abdominal pain, no pa required TECHNIQUE: Imaging protocol: Computed tomography of the abdomen and pelvis with contrast. Radiation optimization: All CT scans at this facility use at least one of these dose optimization techniques: automated exposure control; mA and/or kV adjustment per patient size (includes targeted exams where dose is matched to clinical indication); or iterative reconstruction. Contrast material: OMNIPAQUE 350; Contrast volume: 100 ml; Contrast route: INTRAVENOUS (IV); COMPARISON: 1. MR pelvis wo/w con [id number] 07/27/2023 11:[address] chest w con* [id number] 06/22/2023 2:46 PM RADIATION DOSE METRICS: Total DLP (mGy-cm): 604.5 FINDINGS: Liver: There are least 11 hypodense lesions within the liver. The 10 that were included on the previous examination are all unchanged. The larger ones measuring up to 15 mm of the appearance of benign simple cysts. There are others that are too small to definitively characterize by CT scanning. Follow-up suggested as metastatic disease is not excluded. Gallbladder and bile ducts: Multiple calcified gallstones are present. There is mild gallbladder wall thickening but no pericholecystic fluid. Pancreas: The pancreas is normal. Spleen: The spleen is normal. Adrenal glands: The adrenal glands are normal. Kidneys and ureters: There is a 7 mm benign-appearing simple cyst medial aspect of the right kidney. The left kidney is normal. There is no evidence of hydronephrosis. There is no evidence of renal or ureteral calcifications. Stomach and bowel: There is abnormal thickening of the distal sigmoid colon and rectum. This is involving a longer segment of the sigmoid colon than on the prior examination in the distal extent appears also increased. This could be due to post treatment changes. There is mild diverticulosis of the sigmoid colon. There is a 5.5 x 4.3 cm sized collection of feces like material seen superior to the distal sigmoid colon which appears to be related to the site of the perforation and there is adjacent free air within the adjacent mesentery. There are some thickened loops of small bowel in the mid abdomen likely related to inflammatory changes. Appendix: Not identified Intraperitoneal space: There is free intraperitoneal air seen in small amounts throughout the abdomen. This may indicate perforated viscus. Emergent surgical consultation is advised. There is a small amount of free fluid in the posterior cul-de-sac. Vasculature: The aorta demonstrates moderate atherosclerotic calcification. There is no evidence of an abdominal aortic aneurysm. Lymph nodes: There are perirectal lymph nodes measuring up to 13 mm in the perirectal space. This is smaller than on MRI 07/27/2023. There are enhancing periaortic lymph nodes measuring up to 6 x 12 mm of uncertain significance. Urinary bladder: Unremarkable as visualized. Reproductive: There are several fibroids within the uterus including large 2.5 x 5 cm sized and a 4.3 x 6.3 cm sized calcified fibroids not significantly changed. Bones/joints: Unremarkable. No acute fracture. Soft tissues: Unremarkable. CT/CT chest abdpel w/*[id number] IMPRESSION: 1. No acute findings in the chest 2. Tiny nonspecific pulmonary nodules not significantly changed. IMPRESSION: 1. Known rectal cancer with post treatment changes. 2. Decrease in perirectal adenopathy 3. Free intraperitoneal air most likely from perforated viscus. Suspected site of perforation involves the distal sigmoid colon where there appears to be extrusion of feces. COMMENTS: Consistent with the [employer]'s Incidental Findings Committee white paper (J Am Gonzalo Radiol 2018): Any incidental renal lesion less than 1 cm or classified as too small to characterize, or any incidental cystic renal lesion characterized as simple-appearing, is likely benign. No follow-up imaging is recommended for these lesions per consensus recommendations based on imaging criteria.
[2023-09-17] MEDS: iohexol 350 mg/mL 500 mL Btl (per mL) IV (16:24)
== END 2023-09-17 16:16 | disposition home or self-care (01) ==
LOC: RAD 16:16
PROVIDERS: PCP Nurse Practitioner Family; Visit Provider Nurse Practitioner Family
DX: C20 Malignant neoplasm of rectum (principal); R10.9 Unspecified abdominal pain
CPT/HCPCS: 71260; 74177; Q9967

== ENCOUNTER 2023-11-05 08:30 | Oncology outpatient (recurring) (ONCR) | payer MEDICARE, MEDICAID, SELFPAY ==
[2023-10-23 15:06] LABS: Basophils # 0.1 10^3/uL (0.0-0.1); Basophils % 0.7 %; Eosinophils % 0.2 %; Hematocrit 38.5 % (36-47); Lymphocytes # 1.8 10^3/uL (0.8-4.8); Lymphocytes % 19.7 %; Mean Corpuscular HGB Conc 30.9 g/dL (30-55); Mean Corpuscular Hemoglobin 27.2 pg (27-33); Mean Corpuscular Volume 88.1 fl (85-98); Mean Platelet Volume 9.5 fL (7.4-10.4); Monocytes # 0.6 10^3/uL (0.2-0.9); Neutrophils # 6.62 10^3/uL (1.8-7.7); Nucleated Red Blood Cells % 0 %; Platelet Count 439 10^3/cmm (157-399); Red Blood Count 4.37 10^6/uL (3.85-5.65); Red Cell Distribution Width 23.4 % (12.1-15.1); White Blood Count 9.19 10^3/uL (3.29-11.43)
[2023-10-23] MEDS: sodium chloride 0.9% 1,000 ML 999 ML IV (15:15)
[2023-10-23 15:33] LABS: Albumin Level 3.9 g/dL (3.5-5.2); Alkaline Phosphatase 110 U/L (35-105); Anion Gap 21.5 (5-19); Aspartate Amino Transferase 27 U/L (0-32); Blood Urea Nitrogen 12 mg/dL (8-23); Calcium 10.6 mg/dL (8.5-10.5); Carbon Dioxide 21 mmol/L (22-29); Chloride 97 mmol/L (98-107); Globulin 4.1 g/dL (1.3-4.6); Glucose 99 mg/dL (65-115); Osmolality Calculated 280 mOsm/kg (285-295); Potassium 4.5 mmol/L (3.5-5.1); Sodium 135 mmol/L (136-145); Total Bilirubin 0.3 mg/dL (0.15-1.2)
[2023-10-23 15:43] LABS: Alanine Aminotransferase 15 U/L (0-33)
[2023-10-25 09:18] LABS: C Reactive Protein 26.8 mg/L (0.0-4.9)
[2023-10-26 10:52] VITALS: BP 150/75; PULSE 95; RESP 18; TEMP 36.9; O2SAT 97
[2023-10-26] MEDS: sodium chloride 0.9% 1,000 ML 999 ML IV (11:11)
--- NOTE | 2023-11-05 08:30 | CT_ITS ---
WS: [id number] CT ABDOMEN AND PELVIS WITH CONTRAST HISTORY: to check status of abscess, history of rectal cancer. TECHNIQUE: Imaging performed of the abdomen and pelvis with IV contrast. Single phase imaging of the abdomen. Coronal and sagittal reformats are submitted. All CT scans at [facility] use at [address] one of these dose optimization techniques: automated exposure control; mA and/or kV adjustment per patient size (includes targeted exams where dose is matched to clinical indication); or iterative re construction. IV CONTRAST: Omnipaque 350; 100 mL IV. Oral contrast: No DLP: 240.93 mGy.cm COMPARISON: 09/17/2023 Lower thorax: Lung bases are clear. Heart is normal size. Small hiatal hernia. Liver/biliary system: Normal size liver. There are multiple small hypodensities scattered throughout the liver. Majority of these hypodensities have been previously described. The largest measure up to 1.6 cm in diameter. No increasing mass. Small metastatic sites would be difficult to exclude. Normal portal vein. Gallbladder: Normally distended with stones. Pancreas: Normal size pancreas and pancreatic duct. No adjacent inflammation. Spleen: Normal size spleen. No mass or infarct. Adrenal glands: No adrenal mass. Mild thickening of the LEFT adrenal gland is similar to prior studie s. Right kidney: No hydronephrosis. No solid mass. Stable cyst. Left kidney: Normal. Aorta: Moderate atherosclerosis with no aneurysm. Atherosclerotic plaque at the origin of the celiac axis. Poor opacification is probably due to phase of injection. There is a component of stenosis invo lving the celiac axis and the SMA. Mild stenosis involving the infrarenal aorta. Lymphadenopathy: There are a few small shotty retroperitoneal lymph nodes. None of the lymph nodes ar e increasing in size. Free fluid: None. GI tract: Prior LEFT colectomy. Surgical sutures are noted distally with no increasing soft tissue ma ss. There is no GI tract obstruction. There are additional surgical sutures towards the hepatic flexu re with no mass. The sutures were not present on the prior exam. The LEFT lower quadrant colostomy is new. The previously described abscess in the pelvis associated with the sigmoid colon and perforatio n has resolved. There is a very slight area of mild soft tissue thickening and spiculation with tethe ring in the RIGHT lower quadrant measuring 1.9 x 1.4 cm which was not definitely present on the prior examination. This will need to be further evaluated for a possible metastatic site. Could also poten tially be a postop area of scarring. This is lateral to the previously described diverticular abscess . Abdominal wall: Postsurgical changes. There is a tiny fluid collection measuring 1.2 x 0.8 cm just de ep to the umbilicus. New LEFT lower quadrant colostomy site. Pelvis: No free fluid or adenopathy within the pelvis. Large calcified mass associated with the uteru s from fibroid degeneration. Bones: Mild degenerative changes. CT/CT abdomen pelvis w con* [id number] IMPRESSION: 1. Since the prior CT of 09/17/2023 placement of a LEFT lower quadrant colostom y. Sutures are now noted in the region of the sigmoid with no recurrent mass. P reviously described abscess and perforation within the pelvis has essentially r esolved. 2. There is a new irregular soft tissue mass in the RIGHT lower quadrant measu ring 1.9 x 1.4 cm which was not present on the prior study. This is lateral to the previously described abscess. This will need to be further evaluated with s hort-term interval CT follow-up or PET/CT for possible neoplastic/mesenteric de posit. 3. There is a small fluid collection deep to the umbilicus associated with the surgical tract. Collection measures 1.2 x 0.8 cm. Maybe a small postoperative seroma but a small abscess is not excluded. 4. There is an additional row of surgical sutures near the hepatic flexure. 5. Too small to characterize hepatic nodules and a few cysts are unchanged. 6. Atherosclerosis aorta and mesenteric arteries.
[2023-11-05] MEDS: iohexol 350 mg/mL 500 mL Btl (per mL) IV (09:06)
== END 2023-11-18 23:59 | disposition home or self-care (01) ==
LOC: ONCMED 11-19 11:00
PROVIDERS: Nurse Practitioner Family; PCP Nurse Practitioner Family; Visit Provider Internal Medicine Medical Oncology
DX: Z53.9 Procedure and treatment not carried out, unspecified reason; C20 Malignant neoplasm of rectum; K65.1 Peritoneal abscess; Z93.3 Colostomy status; R19.03 Right lower quadrant abdominal swelling, mass and lump
CPT/HCPCS: 74177; 80053; 85025; 86140; 96360; 99214; J7030; Q9967

== ENCOUNTER 2023-12-18 13:18 | Oncology outpatient (recurring) (ONCR) | payer MEDICARE, MEDICAID, SELFPAY ==
[2023-11-19] MEDS: sodium chloride 0.9% 1,000 ML 999 ML IV (13:20)
[2023-11-19 13:36] LABS: Basophils % 0.9 %; Eosinophils # 0.1 10^3/uL (0.0-0.8); Eosinophils % 1.4 %; Hematocrit 34.1 % (36-47); Lymphocytes # 1.7 10^3/uL (0.8-4.8); Lymphocytes % 38.5 %; Mean Corpuscular Hemoglobin 29.1 pg (27-33); Mean Corpuscular Volume 90.9 fl (85-98); Monocytes # 0.5 10^3/uL (0.2-0.9); Monocytes % 10.1 %; Neutrophils # 2.16 10^3/uL (1.8-7.7); Neutrophils % 48.6 %; Nucleated Red Blood Cells % 0 %; Platelet Count 242 10^3/cmm (157-399); Red Blood Count 3.75 10^6/uL (3.85-5.65); Red Cell Distribution Width 16.2 % (12.1-15.1); White Blood Count 4.44 10^3/uL (3.29-11.43)
[2023-11-19 14:01] LABS: Carcinoembryonic Antigen 5.3 ng/mL (0.0-4.7)
[2023-11-19 14:14] LABS: Alanine Aminotransferase 7 U/L (0-33); Albumin Level 3.6 g/dL (3.5-5.2); Alkaline Phosphatase 65 U/L (35-105); Anion Gap 16.4 (5-19); Aspartate Amino Transferase 15 U/L (0-32); Blood Urea Nitrogen 10 mg/dL (8-23); Calcium 10.1 mg/dL (8.5-10.5); Carbon Dioxide 20 mmol/L (22-29); Chloride 104 mmol/L (98-107); Globulin 2.9 g/dL (1.3-4.6); Glucose 102 mg/dL (65-115); Osmolality Calculated 283 mOsm/kg (285-295); Potassium 3.4 mmol/L (3.5-5.1); Sodium 137 mmol/L (136-145); Total Bilirubin 0.2 mg/dL (0.15-1.2); Total Protein 6.5 g/dL (6.6-8.7)
[2023-12-05 11:00] LABS: Basophils % 0.8 %; Eosinophils % 0.8 %; Hematocrit 34.3 % (36-47); Lymphocytes # 1.5 10^3/uL (0.8-4.8); Lymphocytes % 36.8 %; Mean Corpuscular HGB Conc 31.8 g/dL (30-55); Mean Corpuscular Hemoglobin 29.2 pg (27-33); Mean Platelet Volume 9.8 fL (7.4-10.4); Monocytes # 0.3 10^3/uL (0.2-0.9); Monocytes % 7.5 %; Neutrophils # 2.15 10^3/uL (1.8-7.7); Neutrophils % 53.8 %; Nucleated Red Blood Cells % 0 %; Platelet Count 324 10^3/cmm (157-399); Red Blood Count 3.73 10^6/uL (3.85-5.65); Red Cell Distribution Width 15.4 % (12.1-15.1); White Blood Count 3.99 10^3/uL (3.29-11.43)
[2023-12-05 11:17] LABS: Alanine Aminotransferase 15 U/L (0-33); Albumin Level 3.6 g/dL (3.5-5.2); Alkaline Phosphatase 82 U/L (35-105); Anion Gap 18.6 (5-19); Aspartate Amino Transferase 27 U/L (0-32); Blood Urea Nitrogen 5 mg/dL (8-23); Calcium 9.2 mg/dL (8.5-10.5); Carbon Dioxide 19 mmol/L (22-29); Chloride 106 mmol/L (98-107); Creatinine Clr Calc Pharmacy 47.2483; Globulin 3.2 g/dL (1.3-4.6); Glucose 80 mg/dL (65-115); Osmolality Calculated 286 mOsm/kg (285-295); Potassium 3.6 mmol/L (3.5-5.1); Sodium 140 mmol/L (136-145); Total Bilirubin 0.5 mg/dL (0.15-1.2); Total Protein 6.8 g/dL (6.6-8.7)
[2023-12-17 14:52] LABS: Carcinoembryonic Antigen 1.7 ng/mL (0.0-4.7)
[2023-12-17 14:54] LABS: Basophils % 0.5 %; Eosinophils % 0.8 %; Hematocrit 34.5 % (36-47); Lymphocytes # 1.6 10^3/uL (0.8-4.8); Lymphocytes % 39.2 %; Mean Corpuscular HGB Conc 31.9 g/dL (30-55); Mean Corpuscular Hemoglobin 29.3 pg (27-33); Mean Platelet Volume 10.9 fL (7.4-10.4); Monocytes # 0.4 10^3/uL (0.2-0.9); Monocytes % 9.5 %; Neutrophils # 1.98 10^3/uL (1.8-7.7); Neutrophils % 49.7 %; Nucleated Red Blood Cells % 0 %; Platelet Count 243 10^3/cmm (157-399); Red Blood Count 3.75 10^6/uL (3.85-5.65); Red Cell Distribution Width 15.8 % (12.1-15.1); White Blood Count 3.98 10^3/uL (3.29-11.43)
[2023-12-17 15:03] LABS: Alanine Aminotransferase 12 U/L (0-33); Albumin Level 3.8 g/dL (3.5-5.2); Alkaline Phosphatase 70 U/L (35-105); Anion Gap 17.6 (5-19); Aspartate Amino Transferase 19 U/L (0-32); Blood Urea Nitrogen 7 mg/dL (8-23); Calcium 9.4 mg/dL (8.5-10.5); Carbon Dioxide 21 mmol/L (22-29); Chloride 107 mmol/L (98-107); Globulin 3.1 g/dL (1.3-4.6); Glucose 102 mg/dL (65-115); Osmolality Calculated 292 mOsm/kg (285-295); Potassium 3.6 mmol/L (3.5-5.1); Sodium 142 mmol/L (136-145); Total Bilirubin 0.6 mg/dL (0.15-1.2); Total Protein 6.9 g/dL (6.6-8.7)
--- NOTE | 2023-12-17 15:16 | ONCRAD EPV_ITS ---
Radiation Oncology Established Patient Visit Patient: Juwan Cleary [id number] : 1950 Age: 73 Sex: Female Dictated by: Dr. Kanika Mensah Date of Service: 12/17/2023 Referring Physician(s) : Dr. Mk Leary Diagnosis: C20 - Malignant neoplasm of rectum, Diagnosed 05/07/2023 (Active) Radiotherapy to Date: None Current History: Patient had been undergoing FOLFOX chemotherapy which she started on 08/14/2023. She had received 2 cycles when she presented with lower abdominal pain, nausea and weakness. At that point she was found to have a perforation with free peritoneal air in her abdomen with perforation of the distal sigmoid colon. She underwent exploratory laparotomy and sigmoid colon resection and placement of an end descending small bowel resection with anastomosis and open drainage of abdominal abscess. She was found to be positive for fusiform bacteria on blood cultures. She was treated with multiple rounds of antibiotics. She has been recovering from this. She still is really not eating very well. She is continued to lose weight and is down to 101 pounds. Overall her abscesses have began to resolve and she has begun to become a little bit more active. She is here today to discuss starting treatment with radiation and Xeloda. Current Medications: Allergies: Current Complaints / Review of Systems: . Vital Signs: BMI - 8.423 kg/m2 (low), Height - 92 in, Weight - 101.4 lbs, Temperature - 97.1 f, Pulse - 85 /min, Respiration - 17 /min, O2 Sat - 99 %, Pain - 0, Fatigue - 0 and BP - 156/ 79 mm(hg)(high/). Physical Exam: General: Alert and oriented x 3. No acute distress. HEENT: Normocephalic, atraumatic. Extraocular Movements Intact: Pupils Equal, Round, Reactive to Light: Sclerae anicteric. Oral cavity is clear her tongue is very erythematous. . LUNGS: Respiratory rate is regular nonlabored . HEART: Regular rate and rhythm, . ABDOMEN patient is quite thin with minimal adipose tissue EXTREMITIES: No peripheral edema is identified. NEUROLOGIC: Alert and orient x 3. Patient rides in a wheelchair. Speech is intact. Performance Status: 70 Lab: None pending. Pathology: Primary, c20 - malignant neoplasm of rectum, Diagnosed 05/07/2023 (active) . Imaging: See HPI Impression: Rectal cancer initially treated with neoadjuvant chemotherapy with subsequent perforation of the bowel requiring emergency surgery Plan: This point we talked about how we would proceed with the radiation and chemotherapy portion of her treatment. We had planned on doing this after she had completed her neoadjuvant therapy. We discussed the simulation process. We reviewed the daily treatment regiment. We discussed the risks and side effects both acute and long-term. We talked about how the Xeloda will enhance the effects of the radiation. At this point she is agreed to proceed. I have given her some different things to try for the soreness she has over her tongue. We talked about how with all the antibiotic she has had this could be related to thrush even though there is not a white plaque like material sometimes thrush can just make your tongue very very sore and red. I have called in Diflucan to her pharmacy and I have also given her instructions on where to get a oral probiotic that she can take daily that is just for her oral cavity. Will schedule her to undergo simulation and begin her treatments when she has received her Xeloda. This point she is agreed to proceed. All of her questions were answered. Signed by: 12/17/2023 3:15:03 PM <<Signature on File>> Time spent with patient: 45 CPT Code: CPT Code:
[2023-12-17 16:53] LABS: 25 Hydroxy Vitamin D 27 ng/mL (30-100); Vitamin B12 1462 pg/mL (232-1245)
== END 2023-12-19 23:59 | disposition home or self-care (01) ==
PROVIDERS: PCP Nurse Practitioner Family; Visit Provider Internal Medicine Medical Oncology
DX: Z51.0 Encounter for antineoplastic radiation therapy (principal); C20 Malignant neoplasm of rectum
CPT/HCPCS: 36591; 77334; 77470; 80053; 82306; 82378; 82607; 85025; 96360; 99214; J7030

== ENCOUNTER 2024-01-16 13:00 | Oncology outpatient (recurring) (ONCR) | payer MEDICARE, MEDICAID, SELFPAY ==
[2023-12-31 10:37] LABS: Basophils % 0.8 %; Eosinophils % 1.1 %; Hematocrit 35.6 % (36-47); Lymphocytes # 1.4 10^3/uL (0.8-4.8); Lymphocytes % 37.4 %; Mean Corpuscular Hemoglobin 29.9 pg (27-33); Mean Corpuscular Volume 93.4 fl (85-98); Mean Platelet Volume 10.6 fL (7.4-10.4); Monocytes # 0.3 10^3/uL (0.2-0.9); Monocytes % 8.8 %; Neutrophils # 1.93 10^3/uL (1.8-7.7); Neutrophils % 51.6 %; Nucleated Red Blood Cells % 0 %; Platelet Count 243 10^3/cmm (157-399); Red Blood Count 3.81 10^6/uL (3.85-5.65); Red Cell Distribution Width 15.6 % (12.1-15.1); White Blood Count 3.74 10^3/uL (3.29-11.43)
[2023-12-31 11:06] LABS: Carcinoembryonic Antigen 1.6 ng/mL (0.0-4.7)
[2023-12-31 11:20] LABS: Alanine Aminotransferase 11 U/L (0-33); Albumin Level 3.7 g/dL (3.5-5.2); Alkaline Phosphatase 68 U/L (35-105); Anion Gap 14.4 (5-19); Aspartate Amino Transferase 24 U/L (0-32); Blood Urea Nitrogen 7 mg/dL (8-23); Carbon Dioxide 23 mmol/L (22-29); Chloride 105 mmol/L (98-107); Glucose 83 mg/dL (65-115); Osmolality Calculated 285 mOsm/kg (285-295); Potassium 3.4 mmol/L (3.5-5.1); Sodium 139 mmol/L (136-145); Total Bilirubin 0.5 mg/dL (0.15-1.2); Total Protein 6.7 g/dL (6.6-8.7)
[2023-12-31 12:15] VITALS: BP 112/80; PULSE 78; RESP 16; TEMP 36.6; O2SAT 99
[2023-12-31 13:06] LABS: Vitamin B12 884 pg/mL (232-1245)
--- NOTE | 2024-01-01 14:40 | ONCRAD TMN_ITS ---
Radiation Oncology Weekly Treatment Management Patient: Juwan Mendez MR#: [id number] : 1950> Attending Physician: Dr. Kanika Mensah Date of Service: 01/01/2024 Fractions 2 out of 25 Referring Physician(s) : Dr. Mk Leary Diagnosis: C20 - Malignant neoplasm of rectum, Diagnosed 05/07/2023 (Active) Radiotherapy to date: Course: Rectum 2023, Treatment Site: Rectal Ca., Ref. ID: [id number], Energy: 6X, Dose/Fx (cGy): 200, #Fx: 2 / 25, Dose Correction (cGy): 0, Total Dose Delivered (cGy): 400, Start Date: 12/31/2023, Elapsed Days: 1 Reason for visit: The patient is being seen today as part of their regularly scheduled weekly on treatment visits to assess for acute toxicities from radiotherapy. Review of Systems: Patient had no questions or concerns. She has noticed no changes. Vital Signs: Performed on 01/01/2024 1:46 PM BMI - 19.235 kg/m2, Height - 61 in, Weight - 101.8 lbs, Temperature - 96.7 f, Pulse - 87 /min, Respiration - 16 /min, O2 Sat - 98 %, Pain - 0, Fatigue - 0 and BP - 152/ 77 mm(hg)(high/). Physical Exam: No changes on exam Imaging: Radiation therapy imaging related to accurate target localization (i.e. KV, MV and CBCT) was reviewed. Appropriate changes, if any, were made to ensure treatment accuracy. Plan: Will continue with her treatments as planned Signed by: Dr. Kanika Mensah 01/01/2024 2:38:57 PM
[2024-01-07 12:39] LABS: Basophils % 0.4 %; Eosinophils # 0.1 10^3/uL (0.0-0.8); Eosinophils % 2.5 %; Hematocrit 33.6 % (36-47); Lymphocytes # 0.9 10^3/uL (0.8-4.8); Lymphocytes % 30.5 %; Mean Corpuscular HGB Conc 32.1 g/dL (30-55); Mean Corpuscular Hemoglobin 29.9 pg (27-33); Mean Corpuscular Volume 93.1 fl (85-98); Mean Platelet Volume 10.7 fL (7.4-10.4); Monocytes # 0.2 10^3/uL (0.2-0.9); Monocytes % 6.3 %; Neutrophils % 59.6 %; Nucleated Red Blood Cells % 0 %; Platelet Count 187 10^3/cmm (157-399); Red Blood Count 3.61 10^6/uL (3.85-5.65); Red Cell Distribution Width 15.2 % (12.1-15.1); White Blood Count 2.85 10^3/uL (3.29-11.43)
[2024-01-07 13:05] LABS: Carcinoembryonic Antigen 1.2 ng/mL (0.0-4.7)
[2024-01-07 13:16] LABS: Alanine Aminotransferase 13 U/L (0-33); Albumin Level 3.4 g/dL (3.5-5.2); Alkaline Phosphatase 63 U/L (35-105); Anion Gap 15.3 (5-19); Aspartate Amino Transferase 24 U/L (0-32); Blood Urea Nitrogen 8 mg/dL (8-23); Calcium 8.7 mg/dL (8.5-10.5); Carbon Dioxide 21 mmol/L (22-29); Chloride 107 mmol/L (98-107); Globulin 2.7 g/dL (1.3-4.6); Glucose 82 mg/dL (65-115); Osmolality Calculated 287 mOsm/kg (285-295); Potassium 3.3 mmol/L (3.5-5.1); Sodium 140 mmol/L (136-145); Total Bilirubin 0.4 mg/dL (0.15-1.2); Total Protein 6.1 g/dL (6.6-8.7)
--- NOTE | 2024-01-08 14:56 | ONCRAD TMN_ITS ---
Radiation Oncology Weekly Treatment Management Patient: Madiha Echeverria MR#: [id number] : 1950 Attending Physician: Dr. Kanika Mensah Date of Service: 01/08/2024 Fractions: 7 out of 25 Referring Physician(s) : Dr. Mk Leary Diagnosis: C20 - Malignant neoplasm of rectum, Diagnosed 05/07/2023 (Active) Radiotherapy to date: Course: Rectum 2023, Treatment Site: Rectal Ca, Ref. ID: [id number], Energy: 6X, Dose/Fx (cGy): 200, #Fx: / 25, Dose Correction (cGy): 0, Total Dose Delivered (cGy): 1,400, Start Date: 12/31/2023, Elapsed Days: 8 Reason for visit: The patient is being seen today as part of their regularly scheduled weekly on treatment visits to assess for acute toxicities from radiotherapy. Review of Systems: Patient says she is actually feeling pretty good. She did say her chemotherapy had to be decreased this week secondary to counts. She was also given Lasix and potassium Vital Signs: Performed on 01/08/2024 2:25 PM BMI - 19.575 kg/m2, Height - 61 in, Weight - 103.6 lbs, Temperature - 97.2 f, Pulse - 80 /min, Respiration - 16 /min, O2 Sat - 98 %, Pain - 0, Fatigue - 0 and BP - 143/ 72 mm(hg)(high/). Physical Exam: No changes on exam Imaging: Radiation therapy imaging related to accurate target localization (i.e. KV, MV and CBCT) was reviewed. Appropriate changes, if any, were made to ensure treatment accuracy. Plan: Will continue with her treatments as planned Signed by: Dr. Kanika Mensah 01/08/2024 2:55:01 PM
[2024-01-14 12:20] LABS: Eosinophils % 0.9 %; Hematocrit 36.7 % (36-47); Lymphocytes # 0.5 10^3/uL (0.8-4.8); Lymphocytes % 16.1 %; Mean Corpuscular Hemoglobin 30.5 pg (27-33); Mean Corpuscular Volume 92.4 fl (85-98); Mean Platelet Volume 10.1 fL (7.4-10.4); Monocytes # 0.3 10^3/uL (0.2-0.9); Monocytes % 9.8 %; Neutrophils % 72.9 %; Nucleated Red Blood Cells % 0 %; Platelet Count 179 10^3/cmm (157-399); Red Blood Count 3.97 10^6/uL (3.85-5.65); Red Cell Distribution Width 15.9 % (12.1-15.1); White Blood Count 3.16 10^3/uL (3.29-11.43)
[2024-01-14 12:37] LABS: Alanine Aminotransferase 8 U/L (0-33); Albumin Level 3.6 g/dL (3.5-5.2); Alkaline Phosphatase 77 U/L (35-105); Anion Gap 18.8 (5-19); Aspartate Amino Transferase 16 U/L (0-32); Blood Urea Nitrogen 12 mg/dL (8-23); Calcium 9.2 mg/dL (8.5-10.5); Carbon Dioxide 25 mmol/L (22-29); Chloride 97 mmol/L (98-107); Creatinine Clr Calc Pharmacy 47.0688; Glucose 92 mg/dL (65-115); Osmolality Calculated 283 mOsm/kg (285-295); Potassium 3.8 mmol/L (3.5-5.1); Sodium 137 mmol/L (136-145); Total Bilirubin 0.7 mg/dL (0.15-1.2); Total Protein 6.6 g/dL (6.6-8.7)
--- NOTE | 2024-01-15 13:33 | ONCRAD TMN_ITS ---
Radiation Oncology Weekly Treatment Management Patient: Juwan Mendez MR#: [id number] : 1950> Attending Physician: Dr. Kanika Mensah Date of Service: 01/15/2024 Fractions: Referring Physician(s) : Dr. Mk Leary Diagnosis: C20 - Malignant neoplasm of rectum, Diagnosed 05/07/2023 (Active) Radiotherapy to date: Course: Rectum 2023, Treatment Site: Rectal Ca, Ref. ID: [id number], Energy: 6X, Dose/Fx (cGy): 200, #Fx: , Dose Correction (cGy): 0, Total Dose Delivered (cGy): 2,400, Start Date: 12/31/2023, Elapsed Days: 15 Reason for visit: The patient is being seen today as part of their regularly scheduled weekly on treatment visits to assess for acute toxicities from radiotherapy. Review of Systems: Patient is lost 4 pounds this week. She is taking in about 40 ounces of water a day. She has not really been able to eat much of anything due to not only a decrease in her appetite but the fact that with most foods that she has tried she gets to where she gags and throws up. She does not have nausea per se. We went down a whole list of different food options she could try and for each 1 she had some excuses on why she could not eat it. It was either related to the taste or lack of taste or that it made her gaggy. I tried to encourage her to let us give her IV fluids for the rest of the week but she declined. I have told her she needs to drink at least 5 of her 10 ounce glasses of water in order to get the minimum amount and for her weight. The only thing we could come up with that she might try eating was cheesecake but she only once the cheesecake her makes. Will schedule her tentatively for fluids tomorrow we will see if we can talk her into fluids for Sunday and Sunday this week Vital Signs: Performed on 01/15/2024 12:53 PM BMI - 18.479 kg/m2 (low), Height - 61 in, Weight - 97.8 lbs, Temperature - 97 f, Pulse - 82 /min, Respiration - 18 /min, O2 Sat - 96 %, Pain - 0, Fatigue - 0 and BP - 121/ 71 mm(hg). Physical Exam: On exam she is pale and thin Imaging: Radiation therapy imaging related to accurate target localization (i.e. KV, MV and CBCT) was reviewed. Appropriate changes, if any, were made to ensure treatment accuracy. Plan: Will continue with treatments as planned and encouraged her to continue to try eating different things Signed by: Dr. Kanika Mensah 01/15/2024 1:32:02 PM
== END 2024-01-16 23:59 | disposition home or self-care (01) ==
PROVIDERS: Internal Medicine Medical Oncology; Absent Provider Nurse Practitioner Family; PCP Nurse Practitioner Family; Visit Provider Radiology Radiation Oncology
DX: Z51.0 Encounter for antineoplastic radiation therapy (principal); Z53.9 Procedure and treatment not carried out, unspecified reason; C20 Malignant neoplasm of rectum
CPT/HCPCS: 36591; 77300; 77301; 77336; 77338; 77386; 80053; 82378; 82607; 85025; 99024; 99214

== ENCOUNTER 2024-01-18 11:02 | Oncology outpatient (recurring) (ONCR) | payer MEDICARE, MEDICAID, SELFPAY ==
[2024-01-17] MEDS: sodium chloride 0.9% 500 ML 999 ML IV (14:30)
== END 2024-01-19 23:59 | disposition home or self-care (01) ==
PROVIDERS: Absent Provider Nurse Practitioner Family; PCP Nurse Practitioner Family; Visit Provider Radiology Radiation Oncology
DX: Z53.9 Procedure and treatment not carried out, unspecified reason (principal)
CPT/HCPCS: 77336; 77386; 96360; J7040

== ENCOUNTER 2024-01-20 01:47 | Emergency (ER) | payer MEDICARE, MEDICAID, SELFPAY ==
[2024-01-20 02:01] VITALS: BP 149/82; PULSE 60; RESP 18; TEMP 36.6; O2SAT 98; BMI 18.0
[2024-01-20 03:15] LABS: Basophils % 0.6 %; Eosinophils # 0.2 10^3/uL (0.0-0.8); Eosinophils % 4.1 %; Hematocrit 35.9 % (36-47); Lymphocytes # 0.5 10^3/uL (0.8-4.8); Lymphocytes % 12.4 %; Mean Corpuscular HGB Conc 32.9 g/dL (30-55); Mean Corpuscular Hemoglobin 30.2 pg (27-33); Mean Corpuscular Volume 91.8 fl (85-98); Mean Platelet Volume 9.5 fL (7.4-10.4); Monocytes # 0.5 10^3/uL (0.2-0.9); Neutrophils % 69.1 %; Nucleated Red Blood Cells % 0 %; Platelet Count 264 10^3/cmm (157-399); Red Blood Count 3.91 10^6/uL (3.85-5.65); Red Cell Distribution Width 15.9 % (12.1-15.1); White Blood Count 3.62 10^3/uL (3.29-11.43)
--- NOTE | 2024-01-20 03:30 | CTR_ITS ---
PROCEDURE INFORMATION: Exam: CT Abdomen And Pelvis With Contrast Exam date and time: 01/20/2024 3:45 AM Age: 73 years old Clinical indication: Prior surgery; Surgery date: 6+ months; Surgery type: Colostomy. Csection. Patient HX: C/O pelvic pain with vaginal bleeding. Currently on oral chemo and radiatio therapy for colorectal cancer. ; Additional info: Pelvic pain, vaginal bleeding TECHNIQUE: Imaging protocol: Computed tomography of the abdomen and pelvis with contrast. Radiation optimization: All CT scans at this facility use at least one of these dose optimization techniques: automated exposure control; mA and/or kV adjustment per patient size (includes targeted exams where dose is matched to clinical indication); or iterative reconstruction. Contrast material: OMNI 350; Contrast volume: 80 ml; Contrast route: INTRAVENOUS (IV); COMPARISON: CT abdomen pelvis w con* [id number] 11/05/2023 8:21 AM RADIATION DOSE METRICS: Total DLP (mGy-cm): 290.98 FINDINGS: Lungs: Lung bases are clear as visualized. Liver: There are multiple small benign-appearing hepatic cysts. There is mild fatty infiltration of the liver. The liver is otherwise normal. Gallbladder and biliary ducts: There are multiple gallstones within the gallbladder. No pericholecystic inflammatory changes noted. Pancreas: Normal. No ductal dilation. Spleen: Normal. No splenomegaly. Adrenal glands: Normal. No mass. Kidneys and ureters: Normal. No hydronephrosis. Stomach and bowel: The rectum is oversewn. There is a left lower quadrant colostomy. There is marked wall thickening involving small bowel loops within the midabdomen and right lower abdomen. There is a lesser degree of wall thickening involving more proximal small bowel loops and colon. Findings compatible with an enterocolitis. Surgical suture noted involving small bowel loops within the right upper quadrant. Soft tissue nodule within the right lower quadrant seen on prior exam not well demonstrated on today's exam and may have improved or may be obscured secondary to regional bowel inflammation. Appendix: No evidence of appendicitis. Intraperitoneal space: There is edema involving the mesentery. Vasculature: The aorta is normal in caliber. There is calcified plaque involving the aorta and its branch vessels. Lymph nodes: There are multiple small retroperitoneal lymph nodes. No enlarged nodes are appreciated. Urinary bladder: There is wall thickening with adjacent fat stranding involving the urinary bladder suspicious for a cystitis. Reproductive: There are calcified uterine fibroids. Bones/joints: Unremarkable. No acute fracture. Soft tissues: Unremarkable. CT/CT abdomen pelvis w con* [id number] IMPRESSION: 1. Extensive small bowel wall thickening involving loops of small bowel within primarily the right mid and lower abdomen. There is extensive edema involving the mesentery. There is a lesser degree of bowel wall thickening involving more proximal small bowel loops as well as colon loops. Findings suspicious for an enterocolitis. 2. Circumferential wall thickening with adjacent fat stranding involving the urinary bladder suspicious for a cystitis. 3. Cholelithiasis. 4. Please see above comments for additional details.
[2024-01-20 03:35] LABS: Anion Gap 16.4 (5-19); Blood Urea Nitrogen 8 mg/dL (8-23); Calcium 9.2 mg/dL (8.5-10.5); Carbon Dioxide 24 mmol/L (22-29); Chloride 100 mmol/L (98-107); Creatinine Clr Calc Pharmacy 45.4702; Glucose 91 mg/dL (65-115); Osmolality Calculated 282 mOsm/kg (285-295); Potassium 3.4 mmol/L (3.5-5.1); Sodium 137 mmol/L (136-145)
[2024-01-20] MEDS: iohexol 350 mg/mL 500 mL Btl (per mL) IV (03:49)
[2024-01-20 03:55] LABS: Alanine Aminotransferase 6 U/L (0-33); Albumin Level 3.5 g/dL (3.5-5.2); Alkaline Phosphatase 85 U/L (35-105); Aspartate Amino Transferase 14 U/L (0-32); C Reactive Protein 39.2 mg/L (0.0-4.9); Globulin 2.6 g/dL (1.3-4.6); Total Bilirubin 0.5 mg/dL (0.15-1.2); Total Protein 6.1 g/dL (6.6-8.7)
[2024-01-20 04:03] VITALS: BP 160/71; PULSE 83; RESP 16; O2SAT 99
[2024-01-20 05:00] LABS: Charge for UA Resulting for Rev
[2024-01-20 05:07] VITALS: PULSE 83; RESP 16; O2SAT 99
[2024-01-20 05:10] LABS: Bacteria Urine None Seen /hpf; Squamous Epithelial Cell Urine 0-5 /hpf (0-5); WBC Urine 0-5 /hpf (0-5)
[2024-01-20 05:15] LABS: Bilirubin Urine Negative (Negative); Blood Urine 2+ (Negative); Glucose Urine UA Negative (Normal); Ketones Urine Trace (Negative); Leukocyte Esterase Urine Negative (Negative); Nitrate Urine Negative (Negative); Protein Urine Negative (Negative); Urine Appearance Clear (CLEAR); Urine Color Yellow (Yellow); Urobilinogen Urine 0.2 mg/dL (Negative)
[2024-01-20 05:17] LABS: Specific Gravity, Urine 1.043 (1.005-1.030)
--- NOTE | 2024-01-20 05:53 | W.ED.FEMALGU ---
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 She is status post colectomy with ostomy placement. She has been undergoing chemotherapy and radiation treatment. She had five days of radiation this past week. Her last was on Sunday. She presents with vaginal bleeding. Vaginal bleeding is small in amount. It appears to be dark blood she says. She denies fever. She has had some suprapubic pelvic pain. Related Data Home Medications Medication Instructions Recorded Confirmed acetaminophen 500 mg capsule 500 mg PO Q6H PRN Pain 05/30/23 01/14/24 amlodipine 5 mg tablet 5 mg PO QPM 05/30/23 01/14/24 levothyroxine 50 mcg capsule 50 mcg PO DAILY 05/30/23 01/14/24 alprazolam 0.25 mg tablet 0.125 mg PO TID PRN Anxiety 08/13/23 01/14/24 cholecalciferol (vitamin D3) 350 PO 12/17/23 01/14/24 mcg (14,000 unit) capsule cyanocobalamin (vitamin B-12) 1,000 mcg PO DAILY 12/17/23 01/14/24 1,000 mcg capsule gabapentin 100 mg capsule 100 mg PO QID 01/07/24 01/14/24 nystatin 100,000 unit/mL oral buccal 01/14/24 01/14/24 suspension Previous Rx's Medication Instructions Recorded hydrocodone 5 mg-acetaminophen 325 1 tab PO Q4H PRN pain 30 days #180 08/13/23 mg tablet tabs ondansetron HCl 4 mg tablet 4 mg PO Q6H PRN nausea and 08/14/23 vomiting #30 tabs prochlorperazine maleate 10 mg 10 mg PO Q6H PRN nausea and 08/14/23 tablet vomiting #30 tabs clotrimazole 10 mg charisma 10 mg mucous membrane TID sore 09/15/23 mouth #30 tabs famciclovir 500 mg tablet 500 mg PO Q8H mouth sores #30 tabs 09/15/23 glycerin (adult) 1 supp NC DAILY PRN constipation 09/15/23 #12 ea lidocaine HCl 2 % mucosal solution 1 applic mucous membrane TID #45 mL 04/27/24 (Lidocaine Viscous) magic mouthwash 15 ml PO 6XD PRN sore mouth #16 oz 09/15/23 magnesium citrate 296 ml PO ONCE #296 mL 09/15/23 ondansetron 8 mg disintegrating 8 mg PO Q8H PRN nausea and 09/15/23 tablet vomiting #60 tabs polyethylene glycol 3350 17 17 g PO DAILY #510 grams 09/15/23 gram/dose oral powder (Miralax) megestrol 400 mg/10 mL (10 mL) 200 mg (5 mL) PO DAILY appetite 10/23/23 oral suspension #150 mL fluconazole 100 mg tablet 100 mg PO DAILY thrush #10 tabs 12/17/23 furosemide 20 mg tablet 20 mg PO DAILY #30 tabs 01/07/24 potassium chloride 10 mEq 10 meq PO DAILY #30 caps 01/07/24 capsule,extended release capecitabine 500 mg tablet 500 mg PO BID #25 tabs 01/10/24 Allergies Allergy/AdvReac Type Severity Reaction Status Date / Time No Known Allergies Allergy Verified 01/14/24 13:30 [facility] ED PFSH: Medical History Fibromyalgia Hypertension Hypothyroidism Surgical History H/O section H/O colonoscopy with polypectomy (05/07/23) History of exploratory laparotomy (09/17/23) Exploratory laparotomy with sigmoid colon resection with placement of end descending colostomy, partial small bowel resection with anastomosis, and open drainage of abdominal abscess. Family History Father Lung cancer Mother Heart failure Social History Smoking and tobacco/nicotine status: former use of tobacco/nicotine (quit 2015) Quit status (tobacco/nicotine): has quit using Year quit tobacco: 2016 Former quit date comment: She previously smoked 1/2 pack of cigarettes daily. Alcohol intake: never Physical Exam Const: COMMON NORMALS: no acute distress GENERAL APPEARANCE: cooperative; not ill appearing and not frail appearing HENMT: COMMON NORMALS: normocephalic, atraumatic and Normal external nose present HEAD & SCALP: normocephalic and atraumatic FACE & SINUS: normal facial exam and face symmetric NOSE: Normal external nose present Eye: COMMON NORMALS: Equal, round and reactive pupils present and EOMs intact bilaterally PUPIL: Yes Equal, round and reactive pupils present Neck/C-Spine: GENERAL: Yes trachea midline Chest: CHEST: Yes Symmetrical chest wall rise Resp: COMMON NORMALS: normal respiratory effort, No retractions, No use of accessory muscles and clear to auscultation bilaterally AUSCULTATION: clear to auscultation bilaterally Cardio: COMMON NORMALS: regular rate and regular rhythm RATE: regular rate RHYTHM: regular rhythm GI: COMMON NORMALS: Normal to inspection, nondistended, normoactive bowel sounds present OTHER: Ostomy present. mild diffuse tenderness. : SPECULUM EXAM - VAGINA: No laceration, No lesion and No Vaginal discharge present SPECULUM EXAM - CERVIX: Yes Cervical os closed, Yes Cervical bleeding (minimal), No Cervical lesion present, No Cervical mass present and No Cervical laceration present Extremity: COMMON NORMALS: no pedal edema Neuro: BRICE COMA SCALE: document GCS findings Brice coma scale eye opening: Spontaneous [place] coma scale verbal response: Orientated Brice coma scale motor response: Obey commands [place] coma scale total score: 15 SENSORY EXAM: Yes extremities (intact) Psych: COMMON NORMALS: speech normal SPEECH: Yes normal speech Skin: COMMON NORMALS: no rashes or lesions noted GENERAL SKIN EXAM: no rashes or lesions noted Course Vital Signs: Vital signs: Vital Signs Temperature 97.8 F 01/20/24 02:01 Pulse Rate 83 01/20/24 05:07 Respiratory Rate 16 01/20/24 05:07 Blood Pressure 160/71 01/20/24 04:03 Pulse Oximetry 99 01/20/24 05:07 Oxygen Delivery Me thod Room Air 01/20/24 04:03 [facility] - Female Medical Decision Making Pelvic exam revealed a small amount of old blood coming from the cervix. No lesions in the vaginal wall. CT reveals a stable appearance of a calcified fibroid. There is also evidence of extensive, and somewhat widespread small bowel wall thickening, bladder wall thickening, edema of the mesentery, etcetera. This is likely all from radiation therapy to her abdomen. Her white blood cell count is 3.6. Her CRP is 39. No urinary tract infection on urinalysis. Suspect vaginal bleeding is from uterine fibroid affected by radiation therapy. Expectant management for now. She'll follow up with her oncologist next week. She knows to return for worsening bleeding, fever, other concerning symptoms. Lab Data 01/20/24 03:04 01/20/24 03:04 Radiology Impressions Abdomen/Pelvis CT 01/20/24 03:30 IMPRESSION: 1. Extensive small bowel wall thickening involving loops of small bowel within primarily the right mid and lower abdomen. There is extensive edema involving the mesentery. There is a lesser degree of bowel wall thickening involving more proximal small bowel loops as well as colon loops. Findings suspicious for an enterocolitis. 2. Circumferential wall thickening with adjacent fat stranding involving the urinary bladder suspicious for a cystitis. 3. Cholelithiasis. 4. Please see above comments for additional details. Laboratory Results WBC 3.62 10^3/uL (3.29-11.43) 01/20/24 03:04 RBC 3.91 10^6/uL (3.85-5.65) 01/20/24 03:04 Hgb 11.80 g/dL (11.27-16.99) 01/20/24 03:04 Hct 35.9 % (36-47) L 01/20/24 03:04 MCV 91.8 fl (85-98) 01/20/24 03:04 MCH 30.2 pg (27-33) 01/20/24 03:04 MCHC 32.9 g/dL (30-55) 01/20/24 03:04 RDW 15.9 % (12.1-15.1) H 01/20/24 03:04 Plt Count 264 10^3/cmm (157-399) 01/20/24 03:04 MPV 9.5 fL (7.4-10.4) 01/20/24 03:04 Neut % (Auto) 69.1 % 01/20/24 03:04 Lymph % (Auto) 12.4 % 01/20/24 03:04 [place] % (Auto) 13.0 % 01/20/24 03:04 Eos % (Auto) 4.1 % 01/20/24 03:04 Baso % (Auto) 0.6 % 01/20/24 03:04 Neut # (Auto) 2.50 10^3/uL (1.8-7.7) 01/20/24 03:04 Lymph # (Auto) 0.5 10^3/uL (0.8-4.8) L 01/20/24 03:04 [place] # (Auto) 0.5 10^3/uL (0.2-0.9) 01/20/24 03:04 Eos # (Auto) 0.2 10^3/uL (0.0-0.8) 01/20/24 03:04 Baso # (Auto) 0.0 10^3/uL (0.0-0.1) 01/20/24 03:04 Nucleated RBC % (auto) 0 % 01/20/24 03:04 Nucleated RBCs # 0.0 /100WBC 01/20/24 03:04 Sodium 137 mmol/L (136-145) 01/20/24 03:04 Potassium 3.4 mmol/L (3.5-5.1) L 01/20/24 03:04 Chloride 100 mmol/L (98-107) 01/20/24 03:04 Carbon Dioxide 24 mmol/L (22-29) 01/20/24 03:04 Anion Gap 16.4 (5-19) 01/20/24 03:04 BUN 8 mg/dL (8-23) 01/20/24 03:04 Creatinine 0.5 mg/dL (0.5-0.9) 01/20/24 03:04 GFR Calculation Not Reportable 01/20/24 03:04 Glucose 91 mg/dL (65-115) 01/20/24 03:04 Calculated Osmolality 282 mOsm/kg (285-295) L 01/20/24 03:04 Calcium 9.2 mg/dL (8.5-10.5) 01/20/24 03:04 Total Bilirubin 0.5 mg/dL (0.15-1.2) 01/20/24 03:04 Direct Bilirubin 0.20 mg/dL (0.00-0.30) 01/20/24 03:04 AST 14 U/L (0-32) 01/20/24 03:04 ALT 6 U/L (0-33) 01/20/24 03:04 Alkaline Phosphatase 85 U/L (35-105) 01/20/24 03:04 C-Reactive Protein 39.2 mg/L (0.0-4.9) H 01/20/24 03:04 Total Protein 6.1 g/dL (6.6-8.7) L 01/20/24 03:04 Albumin 3.5 g/dL (3.5-5.2) 01/20/24 03:04 Globulin 2.6 g/dL (1.3-4.6) 01/20/24 03:04 Urine Color Yellow (Yellow) 01/20/24 04:56 Urine Appearance Clear (CLEAR) 01/20/24 04:56 Urine pH 7.0 (5-7) 01/20/24 04:56 Ur Specific [place] 1.043 (1.005-1.030) H 01/20/24 04:56 Urine Protein Negative (Negative) 01/20/24 04:56 Urine Glucose (UA) Negative (Normal) 01/20/24 04:56 Urine Ketones Trace (Negative) 01/20/24 04:56 Urine Blood 2+ (Negative) A 01/20/24 04:56 Urine Nitrate Negative (Negative) 01/20/24 04:56 Urine Bilirubin Negative (Negative) 01/20/24 04:56 Urine Urobilinogen 0.2 mg/dL (Negative) 01/20/24 04:56 Ur Leukocyte Esterase Negative (Negative) 01/20/24 04:56 Urine RBC 3-5 /hpf (0-2) 01/20/24 04:56 Urine WBC 0-5 /hpf (0-5) 01/20/24 04:56 Ur Squamous Epith Cells 0-5 /hpf (0-5) 01/20/24 04:56 Amorphous Sediment Not Reportable 01/20/24 04:56 Urine Bacteria None seen /hpf (NONE) 01/20/24 04:56 Hyaline Casts 0.40 /lpf 01/20/24 04:56 All radiology interpretation(s) finalized by discharge Discharge Plan Discharge Patient Disposition: Home Clinical Impression: Vaginal bleeding, Uterine fibroid Condition: Stable Prescriptions: No Action nystatin 100,000 unit/mL suspension buccal levothyroxine 50 mcg capsule 50 mcg PO DAILY amlodipine 5 mg tablet 5 mg PO QPM acetaminophen 500 mg capsule 500 mg PO Q6H PRN (Reason: Pain) alprazolam 0.25 mg tablet 0.125 mg PO TID PRN (Reason: Anxiety) hydrocodone-acetaminophen 5-325 mg tablet 1 tab PO Q4H PRN (Reason: pain) 30 Days Qty: 180 0RF ondansetron HCl 4 mg tablet 4 mg PO Q6H PRN (Reason: nausea and vomiting) Qty: 30 1RF prochlorperazine maleate 10 mg tablet 10 mg PO Q6H PRN (Reason: nausea and vomiting) Qty: 30 2RF cyanocobalamin (vitamin B-12) 1,000 mcg capsule 1,000 mcg PO DAILY cholecalciferol (vitamin D3) 350 mcg (14,000 unit) capsule PO gabapentin 100 mg capsule 100 mg PO QID potassium chloride 10 mEq capsule, extended release 10 meq PO DAILY Qty: 30 2RF furosemide 20 mg tablet 20 mg PO DAILY Qty: 30 2RF ondansetron 8 mg tablet,disintegrating 8 mg PO Q8H PRN (Reason: nausea and vomiting) Qty: 60 3RF Rx Instructions: 1 tablet under tongue up to every 8 hours prn nausea famciclovir 500 mg tablet 500 mg PO Q8H Qty: 30 6RF magic mouthwash 15 ml PO 6XD PRN (Reason: sore mouth) Qty: 16 6RF Rx Instructions: 5 oz Maalox,5 OZ liquid benadryl, 5 oz 2% viscose lidocaine and 1 oz Nystatin 100,000 squish and spit or swallow up to 6 times daily prn sore mouth. May increase dose to 30 ml if no improvement in 24 hours. clotrimazole 10 mg charisma 10 mg mucous membrane TID Qty: 30 6RF lidocaine HCl [Lidocaine Viscous] 2 % solution 1 applic mucous membrane TID Qty: 45 6RF Rx Instructions: mix a directed for sore mouth megestrol 400 mg/10 mL (10 mL) suspension 200 mg PO DAILY Qty: 150 3RF fluconazole 100 mg tablet 100 mg PO DAILY Qty: 10 2RF capecitabine 500 mg tablet 500 mg PO BID Qty: 25 0RF Rx Instructions: Take 1 tab BID on days of radiation magnesium citrate Solution 296 ml PO ONCE Qty: 296 0RF Miralax 17 gram/dose powder 17 g PO DAILY Qty: 510 0RF Rx Instructions: Take 1-2 scoops daily for the next 3 months to keep stools soft glycerin (adult) Suppository 1 supp NC DAILY PRN (Reason: constipation) Qty: 12 0RF Discharge Orders: Discharge ED (Routine); Ordered 01/20/24 Ordered By: Elbert Gaytan Referrals: Mk Cota MD [Hospitalist] - 4-7 days Laura Keller [Primary Care Provider] - Patient Instructions: Uterine Fibroids (ED), Opioid Safety, Pain Management Activity Restrictions/Additional Instructions: Watch bleeding closely. Return for increased bleeding with passage of clots, soaking 1 pad an hour for more than 3 hours, etc. Return for fever greater than 100. Return for increasing pain, vomiting liquids, other concerning symptoms. See your doctor next week. Coding Level of Care Code ED Lease Administration Supervisor for Juan David Ordoñez
== END 2024-01-20 05:09 | disposition home or self-care (01) ==
PROVIDERS: Emergency Provider Emergency Medicine; PCP Nurse Practitioner Family
DX: N93.9 Abnormal uterine and vaginal bleeding, unspecified (principal); D25.9 Leiomyoma of uterus, unspecified; I10 Essential (primary) hypertension; Z87.891 Personal history of nicotine dependence
CPT/HCPCS: 74177; 80048; 80076; 81003; 81015; 85025; 86140; 96374; 99285; J1642

== ENCOUNTER 2024-02-18 09:00 | Oncology outpatient (recurring) (ONCR) | payer MEDICARE, MEDICAID, SELFPAY ==
--- NOTE | 2024-01-22 11:56 | ONCRAD TMN_ITS ---
Radiation Oncology Weekly Treatment Management Patient: Madiha Echeverria MR#: [id number] : 1950 Attending Physician: Dr. Kanika Mensah Date of Service: 01/22/2024 Fractions: 16 out of 25 Referring Physician(s) : Dr. Mk Leary Diagnosis: C20 - Malignant neoplasm of rectum, Diagnosed 05/07/2023 (Active) Radiotherapy to date: Course: Rectum 2023, Treatment Site: Rectal Ca, Ref. ID: [id number], Energy: 6X, Dose/Fx (cGy): 200, #Fx: 16 25, Dose Correction (cGy): 0, Total Dose Delivered (cGy): 3,200, Start Date: 12/31/2023, Elapsed Days: 22 Reason for visit: The patient is being seen today as part of their regularly scheduled weekly on treatment visits to assess for acute toxicities from radiotherapy. Review of Systems: Patient actually had a better weekend. She actually ate quite a bit of food. She had beans and corn bread. She had pie. She ate several times a day. She had 1 episode of what she thought was vaginal bleeding and went to the ER. They did a CT of her abdomen and pelvis and did not delineate any new findings or any abnormalities that pointed to her reason for bleeding. Vital Signs: Performed on 01/22/2024 11:47 AM BMI - 18.593 kg/m2, Height - 61 in, Weight - 98.4 lbs, Temperature - 96.2 f, Pulse - 82 /min, Respiration - 16 /min, O2 Sat - 97 %, Pain - 3, Fatigue - 4 and BP - 107/ 65 mm(hg). Physical Exam: On exam she seems better today. She is in better spirits. She is more energetic. Imaging: Radiation therapy imaging related to accurate target localization (i.e. KV, MV and CBCT) was reviewed. Appropriate changes, if any, were made to ensure treatment accuracy. Plan: Will continue with her treatments as planned. I have told her in terms of the vaginal bleeding we will have to revisit that once we have completed treatment. They told her that it was from the radiation. I reviewed with her that typically radiation does not cause the uterus to bleed. Usually will stop bleeding. But she has been through a lot of stress and chemotherapy and that that could be causing changes in the uterine wall. At this point I have encouraged her to keep eating like she is doing and we will continue with her treatments as planned. Signed by: Dr. Kanika Mensah 01/22/2024 11:55:09 AM
[2024-01-22 12:20] LABS: Basophils % 0.6 %; Eosinophils # 0.1 10^3/uL (0.0-0.8); Eosinophils % 4.1 %; Hematocrit 34.5 % (36-47); Lymphocytes # 0.5 10^3/uL (0.8-4.8); Lymphocytes % 14.1 %; Mean Corpuscular HGB Conc 33.3 g/dL (30-55); Mean Corpuscular Hemoglobin 30.6 pg (27-33); Mean Corpuscular Volume 91.8 fl (85-98); Mean Platelet Volume 9.6 fL (7.4-10.4); Monocytes # 0.4 10^3/uL (0.2-0.9); Monocytes % 12.9 %; Neutrophils % 67.4 %; Nucleated Red Blood Cells % 0 %; Platelet Count 302 10^3/cmm (157-399); Red Blood Count 3.76 10^6/uL (3.85-5.65); White Blood Count 3.41 10^3/uL (3.29-11.43)
[2024-01-22 12:54] LABS: Carcinoembryonic Antigen 0.9 ng/mL (0.0-4.7)
[2024-01-22 13:05] LABS: Alanine Aminotransferase 6 U/L (0-33); Albumin Level 3.2 g/dL (3.5-5.2); Alkaline Phosphatase 82 U/L (35-105); Anion Gap 16.6 (5-19); Aspartate Amino Transferase 16 U/L (0-32); Blood Urea Nitrogen 7 mg/dL (8-23); Calcium 8.6 mg/dL (8.5-10.5); Carbon Dioxide 22 mmol/L (22-29); Chloride 103 mmol/L (98-107); Creatinine Clr Calc Pharmacy 45.9409; Globulin 2.9 g/dL (1.3-4.6); Glucose 86 mg/dL (65-115); Osmolality Calculated 283 mOsm/kg (285-295); Potassium 3.6 mmol/L (3.5-5.1); Sodium 138 mmol/L (136-145); Total Bilirubin 0.5 mg/dL (0.15-1.2); Total Protein 6.1 g/dL (6.6-8.7)
[2024-01-29 12:55] LABS: Basophils % 0.3 %; Eosinophils # 0.1 10^3/uL (0.0-0.8); Eosinophils % 1.6 %; Hematocrit 31.1 % (36-47); Lymphocytes # 0.3 10^3/uL (0.8-4.8); Lymphocytes % 10.8 %; Mean Corpuscular HGB Conc 33.1 g/dL (30-55); Mean Corpuscular Hemoglobin 30.7 pg (27-33); Mean Corpuscular Volume 92.6 fl (85-98); Mean Platelet Volume 9.4 fL (7.4-10.4); Monocytes # 0.3 10^3/uL (0.2-0.9); Monocytes % 10.5 %; Neutrophils # 2.33 10^3/uL (1.8-7.7); Neutrophils % 76.1 %; Nucleated Red Blood Cells % 0 %; Platelet Count 285 10^3/cmm (157-399); Red Blood Count 3.36 10^6/uL (3.85-5.65); Red Cell Distribution Width 16.5 % (12.1-15.1); White Blood Count 3.06 10^3/uL (3.29-11.43)
[2024-01-29 13:17] LABS: Alanine Aminotransferase 6 U/L (0-33); Alkaline Phosphatase 96 U/L (35-105); Anion Gap 11.9 (5-19); Aspartate Amino Transferase 16 U/L (0-32); Blood Urea Nitrogen 8 mg/dL (8-23); Calcium 8.7 mg/dL (8.5-10.5); Carbon Dioxide 25 mmol/L (22-29); Chloride 105 mmol/L (98-107); Creatinine Clr Calc Pharmacy 45.9409; Globulin 2.8 g/dL (1.3-4.6); Glucose 116 mg/dL (65-115); Osmolality Calculated 285 mOsm/kg (285-295); Potassium 3.9 mmol/L (3.5-5.1); Sodium 138 mmol/L (136-145); Total Bilirubin 0.4 mg/dL (0.15-1.2); Total Protein 5.8 g/dL (6.6-8.7)
--- NOTE | 2024-01-29 13:35 | ONCRAD TMN_ITS ---
Radiation Oncology Weekly Treatment Management Patient: Madiha Echeverria MR#: [id number] : 1950 Attending Physician: Dr. Kanika Mensah Date of Service: 01/29/2024 Fractions: 21 out of 25 Referring Physician(s) : Dr. Mk Leary Diagnosis: C20 - Malignant neoplasm of rectum, Diagnosed 05/07/2023 (Active) Radiotherapy to date: Course: Rectum 2023, Treatment Site: Rectal Ca, Ref. ID: [id number], Energy: 6X, Dose/Fx (cGy): 200, #Fx: 25, Dose Correction (cGy): 0, Total Dose Delivered (cGy): 4,200, Start Date: 12/31/2023, Elapsed Days: 29 Reason for visit: The patient is being seen today as part of their regularly scheduled weekly on treatment visits to assess for acute toxicities from radiotherapy. Review of Systems: Patient is in good spirits today. She continues to eat better. Her weight is stable. Vital Signs: Performed on 01/29/2024 12:58 PM BMI - 18.555 kg/m2, Height - 61 in, Weight - 98.2 lbs, Temperature - 97.2 f, Pulse - 75 /min, Respiration - 16 /min, O2 Sat - 98 %, Pain - 0, Fatigue - 0 and BP - 131/ 64 mm(hg)(/low). Physical Exam: On exam she appears to be in good spirits. Her color is good. She is animated and talkative. Imaging: Radiation therapy imaging related to accurate target localization (i.e. KV, MV and CBCT) was reviewed. Appropriate changes, if any, were made to ensure treatment accuracy. Plan: Will continue with her treatments as planned. Once she is come for her 1 month follow-up we will get her set up to visit with her surgeon again which I believe was Dr. Burch Signed by: Dr. Kanika Mensah 01/29/2024 1:33:40 PM
--- NOTE | 2024-02-04 13:14 | N.ONRD TS_ITS ---
Radiation Oncology Treatment Summary Patient: Madiha Echeverria MR#: [id number] : 1950 Age: 73 Sex: Female Dictated by: Dr. Kanika Mensah Date of Service: 02/04/2024 Referring Physician(s) : Dr. Mk Leary Diagnosis: C20 - Malignant neoplasm of rectum, Diagnosed 05/07/2023 (Active) Radiotherapy to Date: Course: Rectum 2023, Treatment Site: Rectal Ca, Ref. ID: [id number], Energy: 6X, Dose/Fx (cGy): 200, #Fx: 25 / 25, Dose Correction (cGy): 0, Total Dose Delivered (cGy): 5,000, Start Date: 12/31/2023, End Date: 02/04/2024, Elapsed Days: 35 Clinical Summary: The patient tolerated RT . She initially had some problems with weight loss and decreased appetite. About chcf through treatment this reversed and she began to eat and gain her strength. By the completion of her treatment she had developed a mild erythema in the sacral area. She otherwise had improved her overall clinical health and was feeling better. Plan: End of treatment today. Continue on the above medication until the skin reaction resolves. Follow up in one month. Signed by: Dr. Kanika Mensah>02/04/2024 1:14:19 PM <<Signature on File>>
[2024-02-18 09:09] LABS: Basophils % 0.4 %; Eosinophils % 1.3 %; Hematocrit 30.7 % (36-47); Lymphocytes # 0.3 10^3/uL (0.8-4.8); Lymphocytes % 12.2 %; Mean Corpuscular HGB Conc 32.2 g/dL (30-55); Mean Corpuscular Volume 96.2 fl (85-98); Mean Platelet Volume 9.4 fL (7.4-10.4); Monocytes # 0.3 10^3/uL (0.2-0.9); Monocytes % 13.9 %; Neutrophils # 1.71 10^3/uL (1.8-7.7); Neutrophils % 71.8 %; Nucleated Red Blood Cells % 0 %; Platelet Count 217 10^3/cmm (157-399); Red Blood Count 3.19 10^6/uL (3.85-5.65); Red Cell Distribution Width 17.4 % (12.1-15.1); White Blood Count 2.38 10^3/uL (3.29-11.43)
[2024-02-18 09:33] LABS: Carcinoembryonic Antigen 0.8 ng/mL (0.0-4.7)
[2024-02-18 09:44] LABS: Alanine Aminotransferase 8 U/L (0-33); Albumin Level 3.1 g/dL (3.5-5.2); Alkaline Phosphatase 101 U/L (35-105); Anion Gap 10.9 (5-19); Aspartate Amino Transferase 17 U/L (0-32); Blood Urea Nitrogen 9 mg/dL (8-23); Calcium 8.7 mg/dL (8.5-10.5); Carbon Dioxide 24 mmol/L (22-29); Chloride 107 mmol/L (98-107); Creatinine Clr Calc Pharmacy 45.9365; Glucose 89 mg/dL (65-115); Osmolality Calculated 284 mOsm/kg (285-295); Potassium 3.9 mmol/L (3.5-5.1); Sodium 138 mmol/L (136-145); Total Bilirubin 0.3 mg/dL (0.15-1.2); Total Protein 6.1 g/dL (6.6-8.7)
== END 2024-02-18 23:59 | disposition home or self-care (01) ==
PROVIDERS: Absent Provider Nurse Practitioner Family; PCP Nurse Practitioner Family; Visit Provider Radiology Radiation Oncology
DX: C20 Malignant neoplasm of rectum; Z53.9 Procedure and treatment not carried out, unspecified reason
CPT/HCPCS: 36591; 77336; 77386; 80053; 82378; 85025; 99024; 99213; 99214

== ENCOUNTER 2024-03-03 10:45 | Outpatient (CLI) | payer MEDICARE, MEDICAID, SELFPAY ==
--- NOTE | 2024-03-03 11:00 | CT_ITS ---
WS: [id number] CT CHEST, ABDOMEN AND PELVIS WITH CONTRAST HISTORY: Colorectal cancer surveillance. TECHNIQUE: Contiguous 5 mm axial imaging performed through the chest, abdomen and pelvis with IV cont rast, oral contrast has been provided. Coronal and sagittal reformats chest. Coronal and sagittal ref ormats through the abdomen and pelvis. All CT scans at [facility] use at least one of these d ose optimization techniques: automated exposure control; mA and/or kV adjustment per patient size (in cludes targeted exams where dose is matched to clinical indication); or iterative reconstruction. CONTRAST: Omnipaque 350; 100 mL IV. DLP: 444.37 mGy.cm COMPARISON: 01/20/[address]: Moderate pulmonary hyperexpansion. RIGHT subclavian Mediport. Stable perifissural nodules. There are a few additional subpleural nodules which are stable since 09/17/2023. No new pulmonary mass or nodule. No pneumonia. No pericardial or pleural effusions. Mild LEFT heart enlargement. No medias tinal or hilar adenopathy. Small hiatal hernia. Abdomen CT: Normal size liver. There are several scattered cysts within the liver. No evidence for me tastatic disease. Gallbladder is contracted. Normal spleen and pancreas. No bile duct dilatation. No adrenal mass. No renal obstruction. Atherosclerosis aorta. Stomach is markedly distended with food products and contrast. LEFT lower quadrant colostomy. There i s no obstruction. There is continued small bowel wall thickening distal small bowel and extending int o the RIGHT lower quadrant. Mild improvement in the submucosal edema. There is no obstructive pattern . Surgical resection site noted near the sigmoid. No recurrent mass at the anastomotic clips. There i s mild circumferential wall thickening of the distal rectum. Pelvic CT: Urinary bladder is well distended. Large coarse calcification fundus of the uterus consist ent with a fibroid. CT/CT chest abdpel [id number] IMPRESSION: 1. Moderate improvement in the submucosal small bowel edema and the mesenteric edema since 01/20/2024. There is still distal small bowel wall thickening which is circumferential involving several loops of distal small bowel. No obstructio n. 2. No recurrent mass at the surgical resection site of the proximal rectum. 3. LEFT lower quadrant colostomy. 4. Hepatic cyst. 5. Small stable pulmonary nodules. These have not increased in size since 09/16. 6. No adrenal mass. 7. No ascites or adenopathy.
[2024-03-03] MEDS: iohexol 350 mg/mL 500 mL Btl (per mL) PO (11:58)
[2024-03-03] MEDS: iohexol 350 mg/mL 500 mL Btl (per mL) IV (12:44)
== END 2024-03-03 10:46 | disposition home or self-care (01) ==
LOC: RAD 10:46
PROVIDERS: PCP Nurse Practitioner Family; Visit Provider Nurse Practitioner Family
DX: C20 Malignant neoplasm of rectum (principal); Q44.6 Cystic disease of liver; K52.89 Other specified noninfective gastroenteritis and colitis; Z93.3 Colostomy status; K44.9 Diaphragmatic hernia without obstruction or gangrene; R91.8 Other nonspecific abnormal finding of lung field
CPT/HCPCS: 71260; 74177

== ENCOUNTER 2024-03-05 12:47 | Oncology outpatient (recurring) (ONCR) | payer MEDICARE, MEDICAID, SELFPAY ==
--- NOTE | 2024-03-05 13:49 | ONCRAD EPV_ITS ---
Radiation Oncology Established Patient Visit Patient: Madiha Echeverria [id number] : 1950 Age: 73 Sex: Female Dictated by: Dr. Kanika Mensah Date of Service: 03/05/2024 Referring Physician(s) : Dr. Mk Leary Diagnosis: C20 - Malignant neoplasm of rectum, Diagnosed 05/07/2023 (Active) Patient returns for her first month check. She had a CT scan on March 03 which showed moderate improvement in the small bowel edema and the mesenteric edema. There were no recurrent masses at the surgical resection site at the proximal rectum. Stable pulmonary nodules were noted since August. No other abnormalities were noted. Clinically she is feeling well she has good appetite. She denies any new aches or pains. She is sleeping well. Her energy level is returning. She is due to see her surgeon at the end of this week. She had lab drawn 2 weeks ago. Radiotherapy to Date: Course: Rectum 2023, Treatment Site: Rectal Ca, Ref. ID: [id number], Energy: 6X, Dose/Fx (cGy): 200, #Fx: 25 / 25, Dose Correction (cGy): 0, Total Dose Delivered (cGy): 5,000, Start Date: 12/31/2023, End Date: 02/04/2024, Elapsed Days: 35 Current History: Current Medications: Allergies: Current Complaints / Review of Systems: . Vital Signs: Performed on 03/05/2024 12:55 PM BMI - 18.971 kg/m2, Height - 61 in, Weight - 100.4 lbs, Temperature - 97 f, Pulse - 84 /min, Respiration - 16 /min, O2 Sat - 97 %, Pain - 0, Fatigue - 2 and BP - 188/ 81 mm(hg)(high/). Physical Exam: General: Alert and oriented x 3. No acute distress. HEENT: Normocephalic atraumatic. Pupils are equal, sclera clear, extraocular muscles intact LUNGS: Respiratory rate is regular and nonlabored. HEART: Regular rate and rhythm, . ABDOMEN: Patient remains fairly thin even though she is managed to maintain her weight. EXTREMITIES: No peripheral edema is identified. NEUROLOGIC: Alert and orient x 2 gait she says at home is normal as she is no longer using her walker. She just uses a wheelchair here because it such a long ways from the car. Her speech is intact.. Performance Status: 100 Lab: None pending. Pathology: Primary, c20 - malignant neoplasm of rectum, Diagnosed 05/07/2023 (active) . Imaging: See HPI Impression: Adenocarcinoma the rectum Plan: Patient at this time is recovered nicely from her treatments. Her scan appears to be good. At this point she will see the surgeon on Sunday. She is having some issues with several of her teeth which need to be addressed and I encouraged her to go ahead and call her dentist and get this taken care of we will otherwise see her back in 6 months or she will call if any problems arise in the interim Signed by: 03/05/2024 1:48:19 PM <<Signature on File>> Time spent with patient:20 CPT Code: CPT Code:
== END 2024-03-20 23:59 | disposition home or self-care (01) ==
PROVIDERS: Absent Provider Nurse Practitioner Family; PCP Nurse Practitioner Family; Visit Provider Radiology Radiation Oncology
DX: C20 Malignant neoplasm of rectum; Z08 Encounter for follow-up examination after completed treatment for malignant neoplasm; Z92.3 Personal history of irradiation
CPT/HCPCS: 71260; 74177; 96523; 99024

== ENCOUNTER 2024-03-31 13:52 | Oncology outpatient (recurring) (ONCR) | payer MEDICARE, MEDICAID, SELFPAY ==
--- NOTE | 2024-04-01 10:02 | ONCRAD EPV_ITS ---
Radiation Oncology Established Patient Visit Patient: Juwan Cleary [id number] : 1950 Age: 73 Sex: Female Dictated by: Dr. Kanika Mensah Date of Service: 03/31/2024 Referring Physician(s) : Dr. Mk Leary Diagnosis: C20 - Malignant neoplasm of rectum, Diagnosed 05/07/2023 (Active) Radiotherapy to Date: Course: Rectum 2023, Treatment Site: Rectal Ca, Ref. ID: [id number], Energy: 6X, Dose/Fx (cGy): 200, #Fx: 25 / 25, Dose Correction (cGy): 0, Total Dose Delivered (cGy): 5,000, Start Date: 12/31/2023, End Date: 02/04/2024, Elapsed Days: 35 Current History: Patient returns today for an unscheduled visit. I last saw her when she had her CT scan done. We have reviewed the results of the CT which had shown that the edema of the small bowel had improved and there was no evidence of a mass at the surgical resection site. She had stable small pulmonary nodules and no other abnormalities noted. Since that time she has visited with her surgeon and she is back today as she is having increasing anxiety and stress over the thought of undergoing additional surgery. She has questions as to why she would have to have surgery if the scan showed there is no mass. Current Medications: Allergies: Current Complaints / Review of Systems: . Vital Signs: Performed on 03/31/2024 2:11 PM BMI - 20.066 kg/m2, Height - 61 in, Weight - 106.2 lbs, Temperature - 97.7 f, Pulse - 80 /min, Respiration - 16 /min, O2 Sat - 99 %, Pain - 0, Fatigue - 0 and BP - 175/ 72 mm(hg)(high/). Physical Exam: General: Alert and oriented x 3. No acute distress. HEENT: Normocephalic, atraumatic. Extraocular Movements Intact: Pupils Equal, Round, Reactive to Light. LUNGS: Respiratory rate is regular nonlabored HEART: Regular rate and rhythm, ABDOMEN: Abdomen is flat with minimal adipose tissue EXTREMITIES: No peripheral edema is identified NEUROLOGIC: Alert and orient x 3. Speech intact. She still rides in a wheelchair. Performance Status: 80 Lab: None pending. Pathology: Primary, c20 - malignant neoplasm of rectum, Diagnosed 05/07/2023 (active) . 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 I reviewed with her that her case is a very unique case and she has been through a substantial amount in the last year. We talked about the normal pattern of treatment for most patients with them undergoing evaluation and close follow-up to determine whether they need additional surgery. We talked about how over the last couple of decades we have determined that 1 out of 3 patients with rectal cancer do not require additional surgery is just very difficult determining which patients to select. At this point she is very hesitant to undergo any additional surgery. We talked about some additional options which might allow us to at least determine whether she has recurrent cancer at the earliest possible time. She will be 3 months from completion of her treatment in April. She has at this point agreed to proceed with the PET scan or an MRI based on her insurance availability. At that point she can meet with the surgeon again and discuss options. I feel like she feels like she has really had a second chance given to her since she nearly with the perforation. It is important to her that she spend the holidays with her family and not be postoperative in the hospital during that time. I think she will be more amendable to any intervention subsequently after the first of the year. Signed by: 04/01/2024 10:01:04 AM <<Signature on File>> Time spent with patient:30 CPT Code: CPT Code:
--- NOTE | 2024-04-11 13:00 | PETR_ITS ---
PROCEDURE INFORMATION: Exam: PET/CT Skull Base to Mid-thigh Exam date and time: 04/11/2024 1:32 PM Age: 73 years old Clinical indication: Condition or disease; Primary cancer: Rectal; Follow-up oncological assessment; Condition/disease: Post chemo radation; Prior surgery; Surgery date: 6+ months; Surgery type: Colostomy, ; Additional info: Rectal CA sp chemo/xrt perforated after [address] LABS AND CLINICAL REPORTS: Glucose: 79 mg/dl Treatment strategy for malignancy (PET staging): Initial Staging (PI) TECHNIQUE: Imaging protocol: Following at least four-hour fasting and following the injection of radiopharmaceutical, low dose CT images were obtained. Then, PET images were obtained. Attenuation corrected images were constructed using the CT scan. Fused images of PET and CT were reviewed. The standardized uptake values (SUV) reported below are maximum values within a region of interest, expressed in gm/ml. Exam includes orbital meatal line to mid-thigh. SUV normalization method: BodyWeight Radiopharmaceutical: 12.21 mCi F-18 FDG (Fluorodeoxyglucose), IV. Time of imaging post radiopharmaceutical administration: 45 minutes Injection site: right ac COMPARISON: CT chest abdpel w/*[id number] 03/03/2024 FINDINGS: Tubes, catheters and devices: Port catheter placed via the left subclavian vein terminates in the superior vena cava. Brain: Normal physiologic uptake. Pharynx: No abnormal uptake. Larynx: No abnormal uptake. Thyroid: Diffuse intense uptake up to 17 SUV with mild enlargement of the right lobe measuring 2.6 cm in anterior-posterior diameter. Lungs, pleura and trachea: No abnormal uptake. No suspicious lung nodules. Stable small benign incidental findings (calcified granulomas in the upper lobes, perifissural nodules in the lingula and the left lower lobe, a couple of subpleural nodule in the lower lobes). Mild centrilobular emphysema in the upper lobes. No pleural effusion. Heart: Unremarkable. There is no cardiomegaly. There is no pericardial effusion. Mediastinal space: No abnormal uptake. Liver: No abnormal uptake. Maximum uptake is 2.7 SUV. Bilobar simple cysts measuring up to 1.6 cm. Gallbladder and biliary ducts: No abnormal uptake. Small calcified gallstones in the gallbladder. Pancreas: No abnormal uptake. Spleen: No abnormal uptake. No splenomegaly. Adrenal glands: No abnormal uptake. Kidneys and ureters: Normal physiologic uptake. No hydronephrosis. Stomach and bowel: A couple of small foci measuring up to 4.6 SUV adjacent to the posterior wall of the transverse colon on series 301, image 139 may represent increased uptake within the bowel wall or in the adjacent mesentery. No abnormal dilatation of the bowel. Status post Ebony pouch surgery with colostomy from descending colon in the left lower abdomen. Intraperitoneal and retroperitoneal spaces: No abnormal uptake. No ascites. Bladder: Normal physiologic uptake. Reproductive: No abnormal uptake. About 5 cm densely calcified nodule exophytic from the uterine fundus suggestive of fibroid. Vasculature: No abnormal uptake. No aortic aneurysm. Stable prominent vein along the left pelvic sidewall. Lymph nodes: No FDG avid lymphadenopathy in the neck, chest, abdomen, pelvis, and extremities. Skeleton: No abnormal uptake in the visualized axial and appendicular skeleton. Soft tissues: Subcentimeter focus measuring 7.2 SUV within the anterior abdominal wall at the level of the umbilicus inseparable from adjacent muscles on series 301, image 181. PET/PET skull to thigh INIT [id number] IMPRESSION: 1. Indeterminate FDG avid findings include subcentimeter focus within the anterior abdominal wall at the level of the umbilicus, and a couple of foci adjacent to the posterior wall of the transverse colon representing either uptake within the bowel or within the adjacent mesentery. Malignancy is not excluded. 2. Benign diffuse intense uptake in the thyroid suggestive of thyroiditis. 3. Benign non FDG avid findings (small benign lung nodules, simple cysts in the liver, cholelithiasis, calcified uterine fibroid).
== END 2024-04-19 23:59 | disposition home or self-care (01) ==
LOC: RAD 04-11 12:46 → ONCMED 04-11 12:47
PROVIDERS: Absent Provider Nurse Practitioner Family; PCP Nurse Practitioner Family; Visit Provider Radiology Radiation Oncology
DX: C20 Malignant neoplasm of rectum (principal); E07.9 Disorder of thyroid, unspecified; R91.8 Other nonspecific abnormal finding of lung field; R93.3 Abnormal findings on diagnostic imaging of other parts of digestive tract; K76.89 Other specified diseases of liver; K80.20 Calculus of gallbladder without cholecystitis without obstruction
CPT/HCPCS: 78815; 99024; A9552

== ENCOUNTER 2024-05-09 10:41 | Oncology outpatient (recurring) (ONCR) | payer MEDICARE, MEDICAID, SELFPAY | END 2024-05-20 23:59 | disposition home or self-care (01) | PROVIDERS: Absent Provider Nurse Practitioner Family; PCP Nurse Practitioner Family; Visit Provider Radiology Radiation Oncology | DX: Z45.2 Encounter for adjustment and management of vascular access device (principal) | CPT/HCPCS: 96523 ==

== ENCOUNTER 2024-06-06 10:47 | Oncology outpatient (recurring) (ONCR) | payer MEDICARE, MEDICAID, SELFPAY | END 2024-06-20 23:59 | disposition home or self-care (01) | PROVIDERS: PCP Nurse Practitioner Family; Visit Provider Internal Medicine | DX: Z45.2 Encounter for adjustment and management of vascular access device (principal); Z95.828 Presence of other vascular implants and grafts | CPT/HCPCS: 96523 ==

== ENCOUNTER 2024-07-04 10:47 | Oncology outpatient (recurring) (ONCR) | payer MEDICARE, MEDICAID, SELFPAY | END 2024-07-18 23:59 | disposition home or self-care (01) | LOC: ONCMED 10:48 | PROVIDERS: PCP Nurse Practitioner Family; Visit Provider Internal Medicine | DX: Z45.2 Encounter for adjustment and management of vascular access device (principal) ==

== ENCOUNTER 2024-08-01 10:43 | Oncology outpatient (recurring) (ONCR) | payer MEDICARE, MEDICAID, SELFPAY | END 2024-08-18 23:59 | disposition home or self-care (01) | LOC: ONCMED 10:43 | PROVIDERS: PCP Nurse Practitioner Family; Visit Provider Internal Medicine | DX: Z45.2 Encounter for adjustment and management of vascular access device (principal) | CPT/HCPCS: 96523 ==

== ENCOUNTER 2024-08-29 11:00 | Oncology outpatient (recurring) (ONCR) | payer MEDICARE, MEDICAID, SELFPAY ==
[2024-08-25 14:43] LABS: Basophils % 0.3 %; Eosinophils # 0.1 10^3/uL (0.0-0.8); Eosinophils % 2.4 %; Hematocrit 37.4 % (36-47); Lymphocytes # 0.6 10^3/uL (0.8-4.8); Lymphocytes % 17.9 %; Mean Corpuscular HGB Conc 32.9 g/dL (30-55); Mean Corpuscular Hemoglobin 31.4 pg (27-33); Mean Corpuscular Volume 95.4 fl (85-98); Mean Platelet Volume 9.2 fL (7.4-10.4); Monocytes # 0.4 10^3/uL (0.2-0.9); Monocytes % 11.9 %; Neutrophils # 2.27 10^3/uL (1.8-7.7); Neutrophils % 67.5 %; Nucleated Red Blood Cells % 0 %; Platelet Count 263 10^3/cmm (157-399); Red Blood Count 3.92 10^6/uL (3.85-5.65); Red Cell Distribution Width 13.8 % (12.1-15.1); White Blood Count 3.36 10^3/uL (3.29-11.43)
[2024-08-25 15:10] LABS: Carcinoembryonic Antigen 0.8 ng/mL (0.0-4.7)
[2024-08-25 15:21] LABS: Alanine Aminotransferase 15 U/L (0-33); Albumin Level 4.2 g/dL (3.5-5.2); Alkaline Phosphatase 118 U/L (35-105); Anion Gap 14.9 (5-19); Aspartate Amino Transferase 18 U/L (0-32); Blood Urea Nitrogen 15 mg/dL (8-23); Calcium 9.8 mg/dL (8.5-10.5); Carbon Dioxide 25 mmol/L (22-29); Chloride 104 mmol/L (98-107); Globulin 4.1 g/dL (1.3-4.6); Glucose 82 mg/dL (65-115); Osmolality Calculated 290 mOsm/kg (285-295); Potassium 3.9 mmol/L (3.5-5.1); Sodium 140 mmol/L (136-145); Total Bilirubin 0.3 mg/dL (0.15-1.2); Total Protein 8.3 g/dL (6.6-8.7)
--- NOTE | 2024-08-26 09:51 | ONCRAD EPV_ITS ---
Radiation Oncology Established Patient Visit Patient: Juwan Cleary [id number] : 1950> Age: 73> Sex: Female> Dictated by: Dr. Salvatore Jose Date of Service: 08/25/2024 Referring Physician(s) : Dr. Mk Leary Diagnosis: C20 - Malignant neoplasm of rectum, Diagnosed 05/07/2023 (Active). St III(T4, N2, M0) adenocarcinoma of the mid and upper rectum. s/p FOLFOX x 3 complicated by perforation , diverting colostomy and then chemo radiation completed here 02/04/2024. Radiotherapy to Date: Course: Rectum 2023, Treatment Site: Rectal Ca, Ref. ID: [id number], Energy: 6X, Dose/Fx (cGy): 200, #Fx: 25 / 25, Dose Correction (cGy): 0, Total Dose Delivered (cGy): 5,000, Start Date: 12/31/2023, End Date: 02/04/2024, Elapsed Days: 35 Current History: She feels 99% normal now. Back to her baseline level of function. Eating well and gained weight. Ostomy ok. She was concerned about bulging around ostomy that may have been a hernia. This was evaluated with a CT at [facility] and no findings for hernia were seen by her report. She has no abd pain , N or V. She wants no additional surgery. She is comfortable with her port and wants to preserve it for blood draws. She is not yet scheduled to see GI for colonoscopy . PET/CT 04/11/2024 Bilateral hypermetabolic uptake in thyroid consistent with her know thyroiditis.. Small uptake spot in ant abd wall at site of midline surgical incision small regions of uptake in colon likely physiologic. No areas of uptake in rectum or pelvic yo sites seen at diagnosis. Vital Signs: Performed on 08/25/2024 1:15 PM BMI - 22.976 kg/m2 (high), Height - 61 in, Weight - 121.6 lbs, Temperature - 97.4 f, Pulse - 78 /min, Respiration - 16 /min, O2 Sat - 100 %, Pain - 0, Fatigue - 0 and BP - 194/ 70 mm(hg)(high/). Physical Exam: General: Alert and oriented x 3. No acute distress. Robust appearing. No cervical or supraclav adenopathy. Some abd wall bulging around stoma in LLQ. Ostomy lip red with no duskiness. No pedal edema. She declined digital rectal exam. Performance Status: ECOG PS 0 Lab: CBC, CMP, CEA and TSH (TSH at her request) drawn today. Pathology: Primary, c20 - malignant neoplasm of rectum, Diagnosed 05/07/2023 (active) . Imaging: See HPI Impression: Locally advanced adenocarcinoma of rectum. Doing well with no persistent disease as seen on 03/2024 PET/CT. Needs surveillance colonoscopy of colon and rectal stump. As Dr. Cota has retired, we will see her in six months with CT of abdomen and pelvis with labs and CEA level. Signed by: 08/26/2024 9:49:50 AM <<Signature on File>> Time spent with patient: 45 min. CPT Code: * CPT Code: *
== END 2024-09-17 23:59 | disposition home or self-care (01) ==
PROVIDERS: PCP Nurse Practitioner Family; Visit Provider Radiology Radiation Oncology
DX: Z53.9 Procedure and treatment not carried out, unspecified reason (principal)
CPT/HCPCS: 36591; 80053; 82378; 84443; 85025; 99215

== ENCOUNTER 2024-09-26 10:37 | Oncology outpatient (recurring) (ONCR) | payer MEDICARE, MEDICAID, SELFPAY ==
[2024-09-26 11:21] VITALS: BP 185/80; PULSE 70; RESP 17; TEMP 36.6; O2SAT 98
== END 2024-10-18 23:59 | disposition home or self-care (01) ==
LOC: ONCMED 10:37
PROVIDERS: PCP Nurse Practitioner Family; Visit Provider Internal Medicine
DX: Z45.2 Encounter for adjustment and management of vascular access device (principal)
CPT/HCPCS: 96523

== ENCOUNTER 2024-10-24 10:25 | Oncology outpatient (recurring) (ONCR) | payer MEDICARE, MEDICAID, SELFPAY | END 2024-11-17 23:59 | disposition home or self-care (01) | PROVIDERS: PCP Nurse Practitioner Family; Visit Provider Internal Medicine | DX: Z45.2 Encounter for adjustment and management of vascular access device (principal); Z95.828 Presence of other vascular implants and grafts | CPT/HCPCS: 96523 ==

== ENCOUNTER → 2024-12-03 10:41 | Outpatient (BNVA) | payer MEDICARE, MEDICAID, SELFPAY | PROVIDERS: PCP Nurse Practitioner Family; Visit Provider Student in an Organized Health Care Education/Training Program | DX: R22.31 Localized swelling, mass and lump, right upper limb (principal); D17.21 Benign lipomatous neoplasm of skin and subcutaneous tissue of right arm | CPT/HCPCS: 73060; 99203 ==

== ENCOUNTER 2024-12-17 13:17 | Oncology outpatient (recurring) (ONCR) | payer MEDICARE, MEDICAID, SELFPAY ==
[2024-11-26 12:27] LABS: Hematocrit 35.8 % (36-47); Hemoglobin 11.80 g/dL (11.27-16.99); Mean Corpuscular HGB Conc 33.0 g/dL (30-55); Mean Corpuscular Hemoglobin 30.5 pg (27-33); Mean Corpuscular Volume 92.5 fl (85-98); Nucleated Red Blood Cells % 0 %; Platelet Count 209 10^3/cmm (157-399); Red Blood Count 3.87 10^6/uL (3.85-5.65); White Blood Count 3.47 10^3/uL (3.29-11.43)
[2024-11-26 12:54] LABS: Carcinoembryonic Antigen 1.0 ng/mL (0.0-4.7); Thyroid Stimulating Hormone 10.96 uIU/mL (0.27-4.20)
[2024-11-26 13:05] LABS: Alanine Aminotransferase 12 U/L (0-33); Albumin Level 3.9 g/dL (3.5-5.2); Alkaline Phosphatase 120 U/L (35-105); Anion Gap 15.9 (5-19); Aspartate Amino Transferase 17 U/L (0-32); Blood Urea Nitrogen 16 mg/dL (8-23); Calcium 9.4 mg/dL (8.5-10.5); Carbon Dioxide 23 mmol/L (22-29); Chloride 105 mmol/L (98-107); Creatinine Clr Calc Pharmacy 50.7288; Globulin 3.7 g/dL (1.3-4.6); Glucose 91 mg/dL (65-115); Osmolality Calculated 291 mOsm/kg (285-295); Potassium 3.9 mmol/L (3.5-5.1); Sodium 140 mmol/L (136-145); Total Protein 7.6 g/dL (6.6-8.7)
[2024-11-26 14:43] LABS: Ferritin 147 ng/mL (15-150); Iron 52 ug/dL (37-145); Total Iron Binding Capacity 247 mcg/dl; Unsaturated Iron Binding 195 ug/dL (112-347)
[2024-11-26 14:59] LABS: Vitamin B12 201 pg/mL (232-1245)
--- NOTE | 2024-12-12 08:18 | CTR_ITS ---
PROCEDURE INFORMATION: Exam: CT Chest With Contrast; Diagnostic Exam date and time: 12/12/2024 9:35 AM Age: 74 years old Clinical indication: Condition or disease; Cancer and other: Adenocarcinoma of rectum, prior surgery; Surgery date: 6+ months; Surgery type: Sigmoidectomy, colostomy TECHNIQUE: Imaging protocol: Diagnostic computed tomography of the chest with contrast. Radiation optimization: All CT scans at this facility use at least one of these dose optimization techniques: automated exposure control; mA and/or kV adjustment per patient size (includes targeted exams where dose is matched to clinical indication); or iterative reconstruction. Contrast material: OMNI 350; Contrast volume: 100 ml; Contrast route: INTRAVENOUS (IV); COMPARISON: 1. PT PET skull to thigh INIT [id number] 04/11/2024 1:[address] chest abdpel w/*[id number] 03/03/2024 12:19 PM RADIATION DOSE METRICS: Total DLP (mGy-cm): 582.73 FINDINGS: Thyroid: Stable appearance of the thyroid with a 1.7 cm right thyroid nodule. Lungs: Mild centrilobular emphysematous changes, similar to prior. Stable calcified left upper lobe granuloma. A few sub 6 mm perifissural/pleural-based nodules appear unchanged. No new or enlarging pulmonary nodules. No focal consolidation. Pleural spaces: Unremarkable. No pneumothorax. No pleural effusion. Heart: Unremarkable. No cardiomegaly. No pericardial effusion. Lymph nodes: Unremarkable. No enlarged lymph nodes. Vasculature: Left subclavian Infusaport terminates in the lower SVC. The thoracic aorta is nonaneurysmal with diffuse atherosclerotic calcifications. Diaphragm: Small sliding-type hiatal hernia. Bones/joints: Multilevel degenerative changes of the spine. No acute or aggressive osseous lesion. Soft tissues: Unremarkable. COMMENTS: The presence of pulmonary emphysema on CT is an independent risk factor for lung cancer. In the absence of a history or active diagnosis of lung cancer, it is recommended that this patient with emphysema be evaluated for enrollment in a low dose CT lung cancer screening program. PROCEDURE INFORMATION: Exam: CT Abdomen And Pelvis With Contrast Exam date and time: 12/12/2024 9:35 AM Age: 74 years old Clinical indication: Condition or disease; Cancer and other: Adenocarcinoma of rectum, prior surgery; Surgery date: 6+ months; Surgery type: Sigmoidectomy, colostomy TECHNIQUE: Imaging protocol: Computed tomography of the abdomen and pelvis with contrast. Radiation optimization: All CT scans at this facility use at least one of these dose optimization techniques: automated exposure control; mA and/or kV adjustment per patient size (includes targeted exams where dose is matched to clinical indication); or iterative reconstruction. Contrast material: OMNI 350; Contrast volume: 100 ml; Contrast route: INTRAVENOUS (IV); COMPARISON: 1. PT PET skull to thigh INIT [id number] 04/11/2024 1:[address] chest abdpel w/*[id number] 03/03/2024 12:[address] abdomen pelvis w con* [id number] 01/20/2024 3:45 AM RADIATION DOSE METRICS: Total DLP (mGy-cm): 582.73 FINDINGS: Liver: Stable scattered cysts throughout the liver measuring up to 1.6 cm. Gallbladder and biliary ducts: Ongoing cholelithiasis without CT evidence of acute cholecystitis. Pancreas: Normal. No ductal dilation. Spleen: Normal. No splenomegaly. Adrenal glands: Normal. No mass. Kidneys and ureters: Subcentimeter right renal cortical hypodensity remains too small to characterize but appear stable and likely represents a cyst. Stomach and bowel: Patient is again noted to be status post left hemicolectomy with a left lower quadrant end colostomy and oversewn Ebony's pouch. Mild gastric wall thickening is likely exaggerated by underdistention. Ongoing wall thickening involving multiple distal small bowel loops. This appears similar to the PET-CT from 04/11/2024 and slightly improved from the CT from 03/03/2024. No evidence of bowel obstruction. Appendix: No evidence of appendicitis. Intraperitoneal space: Unremarkable. No free air. No significant fluid collection. Vasculature: Moderate diffuse atherosclerotic aortoiliac calcifications. No abdominal aortic aneurysm. Lymph nodes: Unremarkable. No enlarged lymph nodes. Urinary bladder: Unremarkable as visualized. Reproductive: Stable appearance of the uterus with a coarsely calcified fibroid. Similar prominent periuterine vasculature, [id number]. The left gonadal vein is also enlarged, similar to prior. Bones/joints: Diffuse osseous demineralization. Multilevel lumbar spondylosis. No acute or aggressive osseous lesion. Soft tissues: Small fat containing parastomal hernia. Enteric contrast has reached the level of the ostomy. CT/CT chest abdpel w/*[id number] IMPRESSION: 1. Stable sub 6 mm pleural-based pulmonary nodules. No new or enlarging nodules. 2. Stable 1.7 cm right thyroid nodule. If not performed previously, consider nonemergent thyroid ultrasound for further evaluation. IMPRESSION: 1. Stable postsurgical changes of partial left colectomy with left lower quadrant end colostomy and oversewn Ebony's pouch. No evidence to suggest residual/recurrent disease along the resection margin. Recommend continued follow-up per oncology protocol. 2. Persistent wall thickening of distal small bowel loops, overall similar to the prior PET-CT given differences in technique. 3. Persistent prominent periuterine and gonadal veins, [id number]-right, likely representing pelvic congestion syndrome. 4. Additional nonemergent findings as above are similar to prior.
[2024-12-12] MEDS: iohexol 350 mg/mL 500 mL Btl (per mL) IV (10:05)
[2024-12-12] MEDS: iohexol 350 mg/mL 500 mL Btl (per mL) PO (10:05)
[2024-12-17 13:09] LABS: Hematocrit 37.9 % (36-47); Hemoglobin 12.40 g/dL (11.27-16.99); Mean Corpuscular HGB Conc 32.7 g/dL (30-55); Mean Corpuscular Hemoglobin 29.9 pg (27-33); Mean Corpuscular Volume 91.3 fl (85-98); Nucleated Red Blood Cells % 0 %; Platelet Count 231 10^3/cmm (157-399); Red Blood Count 4.15 10^6/uL (3.85-5.65); White Blood Count 3.68 10^3/uL (3.29-11.43)
[2024-12-17 13:29] LABS: Alanine Aminotransferase 11 U/L (0-33); Albumin Level 4.2 g/dL (3.5-5.2); Alkaline Phosphatase 107 U/L (35-105); Anion Gap 15.9 (5-19); Aspartate Amino Transferase 17 U/L (0-32); Blood Urea Nitrogen 15 mg/dL (8-23); Calcium 9.6 mg/dL (8.5-10.5); Carbon Dioxide 24 mmol/L (22-29); Chloride 106 mmol/L (98-107); Creatinine Clr Calc Pharmacy 50.5523; Ferritin 144 ng/mL (15-150); Globulin 3.7 g/dL (1.3-4.6); Glucose 81 mg/dL (65-115); Iron 72 ug/dL (37-145); Osmolality Calculated 294 mOsm/kg (285-295); Potassium 3.9 mmol/L (3.5-5.1); Sodium 142 mmol/L (136-145); Total Iron Binding Capacity 256 mcg/dl; Total Protein 7.9 g/dL (6.6-8.7); Unsaturated Iron Binding 184 ug/dL (112-347)
[2024-12-17 13:45] LABS: Vitamin B12 879 pg/mL (232-1245)
[2024-12-17 13:53] LABS: Carcinoembryonic Antigen 0.9 ng/mL (0.0-4.7)
== END 2024-12-18 23:59 | disposition home or self-care (01) ==
PROVIDERS: PCP Nurse Practitioner Family; Visit Provider Internal Medicine
DX: Z53.9 Procedure and treatment not carried out, unspecified reason; Z08 Encounter for follow-up examination after completed treatment for malignant neoplasm; Z85.048 Personal history of other malignant neoplasm of rectum, rectosigmoid junction, and anus; D50.9 Iron deficiency anemia, unspecified; Z87.891 Personal history of nicotine dependence; Z95.828 Presence of other vascular implants and grafts; Z92.3 Personal history of irradiation; R91.8 Other nonspecific abnormal finding of lung field; Z93.3 Colostomy status; Z92.21 Personal history of antineoplastic chemotherapy
CPT/HCPCS: 36591; 71260; 74177; 80053; 82378; 82607; 82728; 82746; 83010; 83540; 83550; 83615; 84443; 85025; 96523; 99213

== ENCOUNTER → 2024-12-25 09:51 | Outpatient (BNVA) | payer MEDICARE, MEDICAID, SELFPAY | PROVIDERS: PCP Nurse Practitioner Family; Visit Provider Student in an Organized Health Care Education/Training Program | DX: Z95.828 Presence of other vascular implants and grafts (principal) | CPT/HCPCS: 99204 ==

== ENCOUNTER 2025-01-07 10:29 | Day surgery (SDC) | payer MEDICARE, MEDICAID, SELFPAY ==
[2025-01-07] VITALS (7 sets, daily range): BP systolic 146–190; BP diastolic 56–88; PULSE 76–86; RESP 12–22; TEMP 36.1–36.7; O2SAT 95–100; BMI 23.8
--- NOTE | 2025-01-07 11:00 | ANES.PREANE2 ---
Pre-Anesthetic Assessment Height/Weight: Height 1.55 m Operation Date: 01/07/25 12:10 Proposed Procedures p Portacath Removal [id number], Z95.828(Not Applicable) - Jomar Rosales MD Familial anesthetic complications: None Was Beta Suzie taken within 24 hours: N/A Was Clonidine taken within 24 hours: N/A Last intake: > 8hrs Social No alcohol and No tobacco Exam alert, oriented x 3, clear to auscultation bilaterally and regular rate & rhythm Airway Mallampati: Class I Dentition: chipped and other (poor dentition per patient) Metabolic Thyroid Disease Anesthetic Plan ASA status: 2 Anesthesia: MAC Risk of > 500 ml blood loss (7ml/kg in children): No Medications/Allergies Home Medications ?Medication ?Instructions ?Recorded ?Confirmed ?Last Taken ?Type acetaminophen 500 mg capsule 500 mg PO Q6H PRN Pain 05/30/23 01/06/25 01/06/25 History amlodipine 5 mg tablet 5 mg PO DAILY 05/30/23 01/07/25 01/07/25 History alprazolam 0.25 mg tablet 0.125 mg PO TID PRN Anxiety 08/13/23 01/07/25 01/07/25 History cyanocobalamin (vitamin B-12) 1,000 mcg PO DAILY 12/17/23 01/06/25 01/06/25 History 1,000 mcg capsule levothyroxine 75 mcg tablet 75 mcg PO DAILY 12/17/24 01/06/25 01/06/25 History docusate sodium 50 mg capsule 50 mg PO DAILY 01/06/25 01/06/25 01/06/25 History (Stool Softener) Allergies Allergy/AdvReac Type Severity Reaction Status Date / Time No Known Allergies Allergy Verified 01/06/25 10:31 [facility] Anesthesia Medical History Fibromyalgia Hypothyroidism Hypertension Surgical History History of exploratory laparotomy (09/17/23) Exploratory laparotomy with sigmoid colon resection with placement of end descending colostomy, partial small bowel resection with anastomosis, and open drainage of abdominal abscess. H/O colonoscopy with polypectomy (05/07/23) H/O section Family History Father Lung cancer Mother Heart failure Social History Smoking and tobacco/nicotine status: former use of tobacco/nicotine (quit 2015) Quit status (tobacco/nicotine): has quit using Year quit tobacco: 2015 Former quit date comment: She previously smoked 1/2 pack of cigarettes daily. Alcohol intake: never
[2025-01-07] MEDS: ceFAZolin 2,000 mg SDV 2000 MG IVP (11:54)
--- NOTE | 2025-01-07 11:58 | W.PM.OPSUD ---
Surgery/Procedure H&P Update DATE OF PROCEDURE: January 07, 2025 DATE H&P PERFORMED: 12/25/24 H&P UPDATE INFORMATION: I have reviewed H&P completed within last 30 days, I have examined patient prior to procedure, No changes to prior documentation and Risks and benefits of the procedure reviewed PLANNED PROCEDURE: Operation Date: 01/07/25 12:10 Proposed Procedures p Portacath Removal [id number], Z95.828(Not Applicable) - Jomar Rosales MD
[2025-01-07] MEDS: lidocaine-epi 1% 20 mL INJ 5 ML INJECTION (12:18)
[2025-01-07] MEDS: BUPivacaine 0.25% INJ 10 mL 5 ML INJECTION (12:18)
--- NOTE | 2025-01-07 12:20 | PM.OP ---
Operative Report Date of procedure: January 07, 2025 Pre-op diagnosis: Rectal cancer Post-op diagnosis: same Post-op findings: Port, cuff, entire length of catheter removed. Tip sent for culture. Rest of catheter, cuff and port sent to pathology. Procedure done: Port-A-Cath removal Implants: N/A Specimens removed/disposition: Port, cuff, entire length of catheter removed. Tip sent for culture. Rest of catheter, cuff and port sent to pathology. Pathology: Port, cuff, entire length of catheter removed. Tip sent for culture. Rest of catheter, cuff and port sent to pathology. Surgeon: Jomar Rosales MD Body Make Up Artist: N/A Anesthesia: MAC Estimated blood loss (mL): 5 Complications: N/A Findings: Port, cuff, entire length of catheter removed. Tip sent for culture. Rest of catheter, cuff and port sent to pathology. Condition: stable Disposition: same day Brief History: 74-year-old female who had a Port-A-Cath placed for chemotherapy due to rectal cancer. Patient does not need port anymore. Discussed risk and benefits and patient agreed to proceed with Port-A-Cath removal. Procedure: Patient was taken to the operating room and her left chest was prepped and draped in a sterile manner. 1% lidocaine and 0.5% bupivicaine with epinephrine was infiltrated around the MediPort and catheter. Using a 15 blade the previous incision was opened, the subcutaneous tissue was divided using electrocautery and MediPort along the catheter was dissected free from the surrounding subcutaneous tissue and removed entirely. The wound was irrigated with saline, hemostasis ensured with electrocautery. Pressure was held along the catheter tract for 3 minutes. Skin was closed using subcuticular 4-0 monocryl. Glue was applied. The patient was transferred to the recovery room in stable condition.
--- NOTE | 2025-01-07 13:25 | ANE.PACU2 ---
Inpatient post-anesthesia follow up: Airway intact: Yes Vital signs: Temperature 98 F Pulse Rate 81 Respiratory Rate 18 Blood Pressure 150/70 Pulse Oximetry 99 Oxygen Delivery Me thod Room Air Oxygen Flow Rate Fraction of Inspir ed Oxygen Hydration adequate: Yes Nausea and vomiting: No Pain level: 1 Mental status: Baseline
--- NOTE | 2025-01-07 13:52 | SUR.PHASEII ---
1310 Dr. Rosales spoke to pt and family in pt's room and stated that pt could take Tylenol or Ibuprofen for pain. Pt and family verbalized understanding
== END 2025-01-07 13:25 | disposition home or self-care (01) ==
PROVIDERS: PCP Nurse Practitioner Family; Visit Provider Student in an Organized Health Care Education/Training Program
PROC: (CPT 36589; principal; 2025-01-07 12:10)
DX: C20 Malignant neoplasm of rectum (principal); I10 Essential (primary) hypertension; E03.9 Hypothyroidism, unspecified; M79.7 Fibromyalgia; Z87.891 Personal history of nicotine dependence
CPT/HCPCS: 36590; 87070; 87075; 87205; 88300; J0690; J2704; J3010; J3490; J7030; J9999

== ENCOUNTER → 2025-01-22 09:01 | Outpatient (BNVA) | payer MEDICARE, MEDICAID, SELFPAY | PROVIDERS: PCP Nurse Practitioner Family; Visit Provider Student in an Organized Health Care Education/Training Program | DX: R03.0 Elevated blood-pressure reading, without diagnosis of hypertension (principal); Z45.2 Encounter for adjustment and management of vascular access device | CPT/HCPCS: 99213 ==

== ENCOUNTER 2025-03-18 11:17 | Oncology outpatient (recurring) (ONCR) | payer MEDICARE, MEDICAID, SELFPAY ==
[2025-03-18 11:46] LABS: Hematocrit 42.6 % (36-47); Hemoglobin 13.70 g/dL (11.27-16.99); Mean Corpuscular HGB Conc 32.2 g/dL (30-55); Mean Corpuscular Hemoglobin 29.7 pg (27-33); Mean Corpuscular Volume 92.4 fl (85-98); Nucleated Red Blood Cells % 0 %; Platelet Count 240 10^3/cmm (157-399); Red Blood Count 4.61 10^6/uL (3.85-5.65); White Blood Count 3.91 10^3/uL (3.29-11.43)
[2025-03-18 12:34] LABS: Carcinoembryonic Antigen 0.9 ng/mL (0.0-4.7)
[2025-03-18 12:46] LABS: Alanine Aminotransferase 14 U/L (0-33); Albumin Level 4.3 g/dL (3.5-5.2); Alkaline Phosphatase 114 U/L (35-105); Anion Gap 16.8 (5-19); Aspartate Amino Transferase 20 U/L (0-32); Blood Urea Nitrogen 13 mg/dL (8-23); Calcium 10.3 mg/dL (8.5-10.5); Carbon Dioxide 25 mmol/L (22-29); Chloride 104 mmol/L (98-107); Creatinine Clr Calc Pharmacy 51.3144; Globulin 3.8 g/dL (1.3-4.6); Glucose 88 mg/dL (65-115); Osmolality Calculated 294 mOsm/kg (285-295); Potassium 3.8 mmol/L (3.5-5.1); Sodium 142 mmol/L (136-145); Total Protein 8.1 g/dL (6.6-8.7)
--- NOTE | 2025-03-18 13:42 | ONCRAD EPV_ITS ---
Radiation Oncology Established Patient Visit Patient: Juwan Cleary [id number] : 1950> Age: 74> Sex: Female> Dictated by: Dr. Kanika Mensah Date of Service: 03/18/2025 Referring Physician(s) : Dr. Mk Leary Diagnosis: C20 - Malignant neoplasm of rectum, Diagnosed 05/07/2023 (Active) Radiotherapy to Date: Course: Rectum 2023, Treatment Site: Rectal Ca, Ref. ID: [id number], Energy: 6X, Dose/Fx (cGy): 200, #Fx: 25 / 25, Dose Correction (cGy): 0, Total Dose Delivered (cGy): 5,000, Start Date: 12/31/2023, End Date: 02/04/2024, Elapsed Days: 35 Current History: Patient is a year and a half out from completion of chemotherapy and radiation after having had a perforation and emergency diversion during her initial chemotherapy. She has had several scans which did not reveal any metastatic disease. She is here today for routine follow-up. She has a good appetite. She denies any new aches or pains. She sleeping well. Her energy level is good. Her only complaint today is that she has a small punctate area just adjacent to the stoma that she is has trouble managing in terms of getting it to heal. This apparently is under the tape. Current Medications: acetaminophen 500 mg PO Q6H PRN alprazolam 0.125 mg PO TID PRN amlodipine 5 mg PO DAILY cyanocobalamin (vitamin B-12) 1,000 mcg PO DAILY docusate sodium (Stool Softener) 50 mg PO DAILY levothyroxine 75 mcg PO DAILY Allergies: No known allergies Current Complaints / Review of Systems: . Vital Signs: Performed on 03/18/2025 1:24 PM BMI - 24.941 kg/m2 (high), Height - 61 in, Weight - 132 lbs, Temperature - 97.2 f, Pulse - 83 /min, Respiration - 14 /min, O2 Sat - 94 % (low), Pain - 0, Fatigue - 0 and BP - 178/ 90 mm(hg)(high/). Physical Exam: General: Alert and oriented x 3. No acute distress. HEENT: Normocephalic, atraumatic. Extraocular Movements Intact: Pupils Equal, Round, Reactive to Light and Accommodation: LUNGS: Respiratory rate is regular nonlabored HEART: Regular rate and rhythm, .ABDOMEN mildly protuberant adjacent to her stoma EXTREMITIES: Without obvious edema or lymphedema. NEUROLOGIC. Alert and orient x 3. Gait and speech within normal limits Performance Status: 100 Lab: None pending. Pathology: Primary, c20 - malignant neoplasm of rectum, Diagnosed 05/07/2023 (active) . Imaging: See HPI Impression: Locally advanced rectal cancer status postchemotherapy and combined therapy with radiation and after having had a perforation and emergency diversion Plan: At this point she is doing well a year and a half out. She has no clinical signs of disease. She will be seen in medical oncology in May and we will see her back on a as needed basis. We did talk about some different things she can do for the skin around her stoma. Her daughter verbalized understanding of the different things that can be used as she is an HEMATOLOGIST. Signed by: 03/18/2025 1:41:07 PM <<Signature on File>> Time spent with patient:35 CPT Code: CPT Code:
== END 2025-03-20 23:59 | disposition home or self-care (01) ==
PROVIDERS: PCP Nurse Practitioner Family; Visit Provider Internal Medicine
DX: Z08 Encounter for follow-up examination after completed treatment for malignant neoplasm (principal); Z85.048 Personal history of other malignant neoplasm of rectum, rectosigmoid junction, and anus; Z92.3 Personal history of irradiation; Z92.21 Personal history of antineoplastic chemotherapy
CPT/HCPCS: 36415; 80053; 82378; 85025; 99213